=== PATIENT | male | born 2000 | race Caucasian/White ===

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

== ENCOUNTER 2024-04-19 09:06 | Inpatient (IN) ==
--- NOTE | 2024-04-19 09:24 | Emergency Department Note ---
Impression & Plan Anxiety, Crohn disease, Hallucinations ED Provider Note Provider: Toi Pearl MD CHIEF COMPLAINT: Anxious, not functioning, hallucinations HISTORY OF PRESENT ILLNESS: Patient is a 23-year-old gentleman history of Crohn's disease on Remicade presenting here today with mother reporting significant anxiety issues with past 3 weeks. Initially to panic attack and seen at [facility]. Discharge. Follow-up with primary doctor not on any meds. Has been unable to get into outpatient therapy or counseling. No SI or HI reported. The last several days patient's functionality has declined. Patient states he is not sleeping. Mother provides additional history as the patient's slow to respond at times and has difficulty remembering some parts. Patient did have a recent Crohn's flare several weeks ago but finish steroids 2 to 3 weeks ago. No fevers. No falls. No drug or alcohol use reported. Patient had difficulty remembering if he brushes teeth this morning are functioning well and evidently reported to mother he was hearing sirens. Also stated this morning he thought someone was going to try to kill him. No significant psychiatric or inpatient history reported. Did not eat or drink anything today and states he is not hungry. Started job over the summer and the first big project occurring according to mother and he is under significant stress. PAST MEDICAL HISTORY: As noted above MEDICATIONS: Reviewed home medications SOCIAL HISTORY: Lives at home with mother, no recreational drug use reported PHYSICAL EXAM: GENERAL: alert and oriented in no acute distress on stretcher Head: normocephalic and atraumatic EYES: No injection, discharge or icterus. EOMI. NECK: Trachea midline. Supple. Good range of motion. ENT: Mucous membranes pink and moist. LUNGS: Airway patent. No retractions. Breath sounds clear HEART: Regular rate and rhythm. No chest wall tenderness ABDOMEN: Soft and non-tender, without guarding or rebound. SKIN: Acyanotic, warm, dry, without rashes EXTREMITIES: Without swelling, tenderness or deformity NEUROLOGICAL: No focal deficits. No aphasia. No facial droop or slurred speech. Normal strength and tone in the extremities. Sensation to gross touch normal. Ambulatory. Psych: Flattened affect. Some long pauses and slow to respond at times but no slurred speech. No aphasia. Ambulatory. Patient's laboratory studies reviewed. Differential includes Mood disorder, infection, hypoglycemia, electrolyte abnormalities, cardiac sources, intracerebral event, toxicologic, trauma, neurologic, as well as other pathologies. IMPRESSION/MEDICAL DECISION MAKING: Patient denies drug or alcohol usage. No significant psychiatric history beyond the recent several weeks with some anxiety. No visual loose Nations reported but reports at times auditory hallucinations. Very flattened affect on exam here. Seems to have declining functional status but no SI or HI. Has been unable to establish outpatient psychiatric care to date over the last several weeks. Basic blood work obtained here. Benign abdomen. Denies fever and afebrile and no believe this is infectious related. Question if he is having a stress reaction or possible psychiatric break related to job stress. Will occasionally slow to respond does not seem truly catatonic. Basic blood work here without significant abnormality noted. Seen by case management and will make referrals for inpatient treatment on a voluntary basis. Evaluated by 3 S. for inpatient psychiatric care here and accepted upstairs by the psychiatrist for further care. DIAGNOSIS: Anxiety, hallucinations DISPOSITION: Accepted to [facility] on voluntary mental health evaluation on a 201. Past Med/Surg History Problem List (Updated 04/19/24 @ 14:47 by Toi Pearl M.D.) Hallucinations (Acute) Anxiety (Acute) Crohn disease (Chronic) Medical History (Updated 04/19/24 @ 14:47 by Toi Pearl M.D.) Metacarpal bone fracture Surgical History (Updated 01/14/22 @ 09:36 by Danya Mcgowan LPN) H/O colonoscopy multiple-has Crohn's Family History Grandfather Ischemic stroke Unknown Heart disease Grandmother Heart disease Mother Ulcerative colitis Sister Vesicoureteral reflux, bilateral Social History (Updated 01/14/22 @ 09:37 by Danya Mcgowan LPN) Smoking Status: Never smoker Second Hand Exposure: No; Do You Dip or Chew Tobacco: No; Hx Alcohol Use: No Hx Substance Use: No Preferred Language: Sammarinese Communication Ability: Effective Visual Impairment: No Limitations Hearing Ability: Normal Dust Puller Required: No marital status: Single Current Living Situation: Family Current Living Situation Comment: dad,mom,two younger sisters and one dog. [employer] student. Feels Safe at Home: Yes Childhood Exposure to Second-Hand Smoke: No Dental Care, Regularly: Yes Gender Identity: Male Allergies Allergies Allergy/AdvReac Type Severity Reaction Status Date / Time cat dander Allergy Mild eyes get Verified 01/14/22 09:34 red, and sneezes stellara Allergy Severe Uncoded 01/14/22 09:34 Home Meds Home Medications Medication Instructions Recorded Confirmed multivitamin 1 tab PO DAILY 12/24/20 04/19/24 infliximab 100 mg intravenous 100 mg IV .Q 6 wks 01/14/22 04/19/24 solution (Remicade) Results & Data (ED) Vital Signs Vital Signs - 24 hr 04/19/24 09:10 04/19/24 11:16 04/19/24 13:06 Temperature 36.7 C Temperature Source Temporal Artery Scan Pulse Rate 124 H Pulse Rate [Finger] 93 H 105 H Pulse Rhythm [Finger] Regular Regular Pulse Strength [Finger] Normal Normal Respiratory Rate 14 14 16 Respiratory Effort / Characteristics Non-Labored Spontaneous Non-Labored Spontaneous Respiratory Depth Normal Normal Respiratory Pattern Regular Regular Blood Pressure 146/93 H Blood Pressure [Right Arm] 135/79 142/93 H Blood Pressure Mean 110 Blood Pressure Mean [Right Arm] 97 109 Blood Pressure Position [Right Arm] Lying Lying Pulse Oximetry 97 99 98 Oxygen Delivery Method Room Air Room Air Room Air Sepsis New/Unexplained Change in Mental Status No Sepsis Action Taken by Nursing No Action Required Laboratory Data 04/19/24 09:25 04/19/24 09:25 Lab Results 04/19/24 04/19/24 Range/Units 09:25 09:27 WBC 10.31 (4.8-10.8) K/ul RBC 5.53 (4.70-6.10) M/uL Hgb 15.7 (14.0-18.0) g/dl Hct 46.1 (42.0-52.0) % MCV 83.4 (80.0-100.0) fL MCH 28.4 (25.0-34.0) pg MCHC 34.1 (32.0-36.0) g/dL RDW Std Deviation 38.6 (36.4-46.3) fL RDW Coeff of Juhi 12.6 (11.5-14.5) % Plt Count 284 (130-400) K/uL MPV 9.4 (9.4-12.4) fL Immature Gran % (Auto) 0.2 % Neut % (Auto) 73.8 % Lymph % (Auto) 20.1 % [place] % (Auto) 5.4 % Eos % (Auto) 0.1 % Baso % (Auto) 0.4 % Neut # (Auto) 7.61 H (1.40-6.50) K/uL Lymph # (Auto) 2.07 (1.20-3.40) K/uL [place] # (Auto) 0.56 (0.11-0.59) K/uL Eos # (Auto) 0.01 (0.00-0.50) K/uL Baso # (Auto) 0.04 (0.00-0.20) K/uL Immature Gran # (Auto) 0.02 (0.01-0.20) K/uL Sodium 138 (136-145) mmol/L Potassium 3.7 (3.5-5.1) mmol/L Chloride 103 (98-107) mmol/L Carbon Dioxide 27 (21-32) mmol/L Anion Gap 8 (3-11) BUN 9 (6-23) mg/dl Creatinine 0.91 (0.6-1.4) mg/dl Est Cr Clr Drug Dosing 120.8 ml/min eGFR 122.21 BUN/Creatinine Ratio 9.9 L (10-20) Glucose 111 H (70-99(Fasting)) mg/dl Calcium 9.9 (8.6-10.3) mg/dl Total Bilirubin 0.7 (0.2-1.0) mg/dl AST 17 (13-39) U/L ALT 14 (7-52) U/L Alkaline Phosphatase 51 (34-104) U/L Total Protein 8.0 (6.0-8.3) gm/dl Albumin 5.0 (3.4-5.0) gm/dl Globulin 3.0 (2.5-4.0) gm/dl Albumin/Globulin Ratio 1.7 (0.9-2) TSH 2.619 (0.300-4.500) uIu/ml Salicylates < 3.0 L (3.0-30) mg/dl Acetaminophen < 3 L (10-30) ug/ml Ethyl Alcohol mg/dL < 10.0 (<10.0) mg/dl SARS-CoV-2, RNA, NAAT NEGATIVE (NEGATIVE) Administered Medications Discontinued Medications Lorazepam (Lorazepam 1 Mg Tab) 1 mg PO NOW STA Stop: 04/19/24 14:10 Last Admin: 04/19/24 14:27 Dose: 1 mg Documented By: TLF Discharge Plan Visit Data Chief Complaint: Mental Health Evaluation Stated Complaint: MENTAL HEALTH CRISIS ED Provider: Toi Pearl Discharge Problem: Anxiety, Crohn disease, Hallucinations Patient Disposition: Admitted As Inpatient Discharge Instructions Interventions: ED Discharge Assessment Last Done: 04/19/24 13:33
[2024-04-19 09:52] LABS: Basophils # (auto) 0.04 K/uL (0.00-0.20); Basophils % (auto) 0.4 %; Eosinophils # (auto) 0.01 K/uL (0.00-0.50); Eosinophils % (auto) 0.1 %; Hematocrit (blood only) 46.1 % (42.0-52.0); Hemoglobin 15.7 g/dl (14.0-18.0); Immature Granulocytes # (auto) 0.02 K/uL (0.01-0.20); Immature Granulocytes % (auto) 0.2 %; Lymphocytes # (auto) 2.07 K/uL (1.20-3.40); Lymphocytes % (auto) 20.1 %; Mean Corpuscular Hemoglobin 28.4 pg (25.0-34.0); Mean Corpuscular Hgb Conc 34.1 g/dL (32.0-36.0); Mean Corpuscular Volume 83.4 fL (80.0-100.0); Mean Platelet Volume 9.4 fL (9.4-12.4); Monocytes # (auto) 0.56 K/uL (0.11-0.59); Monocytes % (auto) 5.4 %; Neutrophils # (auto) 7.61 K/uL (1.40-6.50); Neutrophils % (auto) 73.8 %; Platelet Count 284 K/uL (130-400); RDW Coefficient of Variation 12.6 % (11.5-14.5); RDW Standard Deviation 38.6 fL (36.4-46.3); Red Blood Count 5.53 M/uL (4.70-6.10); White Blood Count 10.31 K/ul (4.8-10.8)
[2024-04-19 10:08] LABS: Acetaminophen < 3 ug/ml (10-30); Salicylate < 3.0 mg/dl (3.0-30)
[2024-04-19 10:15] LABS: Albumin Globulin Ratio 1.7 (0.9-2); BUN Creatinine Ratio 9.9 (10-20); Bilirubin,Total 0.7 mg/dl (0.2-1.0); Calcium 9.9 mg/dl (8.6-10.3); Creatinine Clr Calc Pharmacy 120.8 ml/min; Potassium 3.7 mmol/L (3.5-5.1)
[2024-04-19 10:29] LABS: Thyroid Stimulating Hormone 2.619 uIu/ml (0.300-4.500)
[2024-04-19 11:02] LABS: Appearance Urine Clear (Clear); Bilirubin Urine Negative (Negative); Blood Urine Negative (Negative); Color Urine Yellow; Glucose Urine UA Negative (Negative); Ketones Urine Trace (Negative); Leukocyte Esterase Urine Negative (Negative); Nitrite Urine Negative (Negative); Protein Urine Negative (Negative); Urobilinogen Urine Negative (Negative)
[2024-04-19 11:37] LABS: Amphetamines+Metham, Urine Neg (Neg); Barbiturates, Urine Neg (Neg); Benzodiazepine, Urine Neg (Neg); Cocaine, Urine Neg (Neg); Fentanyl, Urine Neg (Neg); MDMA (Ecstacy), Urine Neg (Neg); Marijuana, Urine Neg (Neg); Methadone, Urine Neg (Neg); Opiate, Urine Neg (Neg); Phencyclidine, Urine Neg (Neg)
[2024-04-19] MEDS ORDERED: ALUMINUM/MAGNESIUM SUSP 30 ML UDC PO PRN (13:25)
[2024-04-19] MEDS ORDERED: hydrOXYzine HCl 25 MG TAB PO PRN (13:25)
[2024-04-19] MEDS ORDERED: SODIUM CHLORIDE 0.65% NA SOLN 45 ML (OCEAN) PRN (13:25)
[2024-04-19] MEDS ORDERED: BISMUTH SUBSALICYLATE 262 MG CHEW PO PRN (13:25)
[2024-04-19] MEDS ORDERED: MAGNESIUM HYDROXIDE SUSP 30 ML UDC PO PRN (13:25)
[2024-04-19] MEDS: LORazepam 1 MG TAB PO STA (14:27)
[2024-04-19] MEDS: LORazepam 1 MG TAB PO SCH (21:21)
[2024-04-19] MEDS: OLANZapine 5 MG TABLET PO SCH (21:21)
--- NOTE | 2024-04-20 08:42 | History & Physical ---
Date of Service April 20, 2024 Impression / Recommendations Impression KIMANI BAUTISTA is a 23-year-old man who currently lives in [place] with his parents, has a history of anxiety and Crohn's disease, and was admitted on 04/19/24 13:26 on a 201 voluntary commitment for psychosis with impaired functioning including not eating and poor attention to self care. Diagnostically consistent with unspecified psychosis with differential including panic disorder/MICHAEL vs brief psychotic disorder vs MDD with psychotic features vs 2/2 steroid induced from recent prednisone use. Report of recent poor sleep but no other symptoms to suggest annette or bipolar disorder at this time. Discussed medication treatment options in detail. Discussed risks, benefits and alternatives. Patient would like to start and consented to sertraline for anxiety and possible depression component as well as olanzapine for unspecified psychosis and lorazepam prn for panic symptoms. Reviewed side effects including but not limited to: GI, RUIZ, sexual side effects, and counseled on black box warning of potential for emergence of or increased SI and need to let staff know should this occur or should they feel unsafe. Also discussed importance of seeking emergency care following discharge if this side effect occurs in the future with sertraline; potential for addiction/respiratory suppression, need to avoid operating machinery or mixing with alcohol with lorazepam; movement (TD, NMS), cardiac (QTc prolongation), and metabolic (stroke, insulin resistance) and necessity for fasting lipid and glucose labwork and AIMS done with score of 0 with olanzapine. MNPR-psychosis with paranoia and sense that others are talking about him or thinking about him negatively Overall I spent a total of 75 minutes for this admission including review of chart records, review of labwork, direct evaluation of the patient, counseling the patient, ordering medication, risk assessment, discussion with the psychiatric liason RN and documentation in the electronic health record. (1) Psychotic disorder: (2) Hallucinations: (3) Anxiety: (4) Crohn disease: (5) Insomnia: Plan 04/20/2024: The patient was admitted to the [facility] ([facility]) on q15 min checks (behavioral with suicide precautions) for safety. The patient will participate in group, recreational, and milieu therapies and will be offered additional individual and family sessions as clinically appropriate. -Start sertraline 25mg daily -Start olanzapine 5mg HS po and additional 2.5mg BID prn for paranoia/psychosis -Lorazepam 0.5mg BID prn for panic attacks/agitation -Labwork: * Fasting lipid panel * HbA1c * Vit D * Vit B12 Inventory Assets Strengths: supportive relationships, willing to get treatment Needs: safety and stabilization, medication adjustment, additional coping skills, increased outpatient services Suicide Risk Level Suicide Risk Level: Moderate (q15 min suicide checks) (denies SI but with increased paranoia and anxiety, feels safe in the hospital and feels able to alert staff if he feels unsafe or needs additional support) Risk Factors Assessment Male: Yes : Yes Do You Have Access To A Gun?: Yes (father has in the home) Health Problems: Yes Mental Health Diagnoses: Yes Substance Use Disorders: No Previous Attempt: No Family History of Suicide: No Previous Psychiatric Hospitalization: No Hopelessness: No Protective Factors Assessment Employed: Yes Stable Relationships: Yes Supportive Family: Yes Psychiatric History Identifying Data KIMANI BAUTISTA is a 23-year-old man who currently lives in [place] with his parents, has a history of anxiety and Crohn's disease, and was admitted on 04/19/24 13:26 on a 201 voluntary commitment for psychosis. Chief Complaint "Everything felt really fuzzy and I was hearing all the sirens". History of Present Illness Sebastian presents for psychiatric admission for worsening anxiety, panic symptoms and psychosis in the context of a recent Crohn's disease flare requiring high-dose prednisone treatment, work-related stress, and feelings of being overwhelmed by responsibilities. On March 22, he experienced a panic attack at work, leading to an ER visit where he was diagnosed with panic anxiety disorder. He reports improvement in his Crohn's symptoms after taking prednisone, but has developed feelings of paranoia and uneasiness. Describes hearing sirens and wondered if people at work might have been talking about him. He fears being targeted or that his work performance might be negatively impacted. He describes feeling like he wasn't "pulling his weight" at work and experiencing confusion about work-related tasks. He is not currently in therapy but is actively seeking a therapist through his insurance. 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 He endorses anxiety symptoms including excessive worry, paranoid thoughts, and panic attacks. He has been experiencing poor sleep for the past 2-3 days, with increased heart rate during the night. However, he reports improved sleep after starting Zyprexa last night. He was not prescribed any psychiatric medications prior to admission. Psychiatric ROS notable for no current nor history of symptoms of annette,PTSD, OCD nor eating disorder. Additional collateral information per ED CM note on 04/19/2024: "Pt is significantly delayed in responding to any questions. CM asked pt if he was hearing anything while he was pausing to answer, pt denies hearing anything following CM's voice. His eyes are looking around the room while he is silent. He also does not seem to know the answers to several questions asked or will answer incorrectly, prompting his mother to provide the correct response. Pt is unsure what he did this morning as far as getting himself ready for the day. He does not know if he brushed his teeth. Pt answered that his Crohn's disease has been fine, but mom corrects him stating that he has been having some issues with it. Pt states that he is not hearing any voices but does hear an ambulance siren that is not there. Pt's mother reports that today pt stated that someone is trying to kill him. Pt has no history of these symptoms. He was at [facility] recently following a panic attack and was discharged home to follow up outpatient. Pt has gotten significantly worse since then. Pt's mother reports he has not been eating, drinking, or sleeping well. He cannot remember things, make even basic decisions, and is unsure what he is doing most times. Pt denies SI/HI. He is unsure if he is having visual hallucinations. Denies drug use, but does consume alcohol occasionally." Past Psychiatric History Current Psychiatric Diagnosis: Unspecified Psychosis Outpatient Services: none currently Previous Psych Admissions: none Do You Have Access To A Gun?: Yes (father has in the home) History of Previous Suicide Attempt: No Past Medication Trials: none Allergies Allergy/AdvReac Type Severity Reaction Status Date / Time cat dander Allergy Mild eyes get Verified 01/14/22 09:34 red, and sneezes stellara Allergy Severe Uncoded 01/14/22 09:34 Home Medications Medication Instructions Recorded Confirmed Type multivitamin 1 tab PO DAILY 12/24/20 04/19/24 History infliximab 100 mg intravenous 100 mg IV .Q 6 wks 01/14/22 04/19/24 History solution (Remicade) Family History Family History of: None Alcohol History Hx of Alcohol Use Over the Past 12 Months: Yes (Occasional) AUDIT Total Score: 0 Reports occasional use, typically 1 drink a few times per week but limits this due to impact on autoimmune disease Smoking Use Have You Smoked or Used Tobacco Products in the Last 30 Days: No Smoking Status: Never smoker Substance History Hx of Prescription Med Misuse Over the Past 12 Months: No Hx of Over the Counter Med Misuse Over the Past 12 Months: No Hx of Inhalent Misuse Over the Past 12 Months: No Hx of Organic Substance Use Over the Past 12 Months: No Hx of Illegal Substances/Street Drug Use Over Past 12 Months: No Problems as a Result of Past Substance Use: None Identified Personal History Living Arrangements: Home Highest Grade Completed: College Employment Status: Hvac Installation Technician Employed Marital Status: Single Beliefs That Will Affect Care: None Current Legal Problems: No Hx Legal Problems: No Patient History Medical History Metacarpal bone fracture Surgical History H/O colonoscopy multiple-has Crohn's Family History Grandfather Ischemic stroke Unknown Heart disease Grandmother Heart disease Mother Ulcerative colitis Sister Vesicoureteral reflux, bilateral Social History Smoking Status: Never smoker Second Hand Exposure: No; Do You Dip or Chew Tobacco: No; Hx Alcohol Use: No Hx Substance Use: No Preferred Language: Nauruan Communication Ability: Effective Visual Impairment: No Limitations Hearing Ability: Normal Varnishing Unit Tool Setter Required: No Beliefs That Will Affect Care: None marital status: Single Current Living Situation: Family Current Living Situation Comment: dad,mom,two younger sisters and one dog. [employer] student. Feels Safe at Home: Yes Childhood Exposure to Second-Hand Smoke: No Dental Care, Regularly: Yes Gender Identity: Male Assistive Devices: Glasses Review of Systems Review of Systems: All systems reviewed & are unremarkable except as noted in HPI & below Physical Exam Psychiatric: Orientation: alert and oriented x 3 Apperance: appropriately dressed and appropriately groomed Eye Contact: + fair eye contact Motor Behavior: no abnormal motor movements Speech: + abnormal rate/rhythm/volume of speech (soft, mumbled at times) Affect: + depressed affect and + flat affect Mood: + depressed mood and + anxious mood Thought Process: goal directed thought process Thought Content: + preoccupation, + paranoid and + persecution Suicidal Thoughts: denies suicidal thoughts, denies suicidal plan and denies suicidal intent Homicidal Thoughts: denies homicidal thoughts Hallucinations: + auditory hallucinations; no visual hallucinations Cognition: recent memory grossly intact, remote memory grossly intact, attention grossly intact and language grossly intact Estimated Intelligence: consistent with education level Insight: + limited insight Judgment: + limited judgement Vital Signs (Past 24 Hours): Last Vital Signs Temp 37.0 C 04/20/24 06:38 Pulse 127 H 04/20/24 06:39 Resp 16 04/20/24 06:38 BP 127/83 04/20/24 06:39 Pulse Ox 97 04/20/24 06:38 O2 Del Method Room Air 04/20/24 06:38 Exam Statement: A physical exam was performed in the ED by Dr. Pearl for the purposes of medical clearance. I accept that physical as correct and adequate for the purposes of the inpatient physical exam. Results & Data ([facility]) Laboratory Results Laboratory Results - last 24 hr 04/19/24 04/19/24 04/19/24 09:25 09:27 Unknown WBC 10.31 RBC 5.53 Hgb 15.7 Hct 46.1 MCV 83.4 MCH 28.4 MCHC 34.1 RDW Std Deviation 38.6 RDW Coeff of Juhi 12.6 Plt Count 284 MPV 9.4 Immature Gran % (Auto) 0.2 Neut % (Auto) 73.8 Lymph % (Auto) 20.1 [place] % (Auto) 5.4 Eos % (Auto) 0.1 Baso % (Auto) 0.4 Neut # (Auto) 7.61 H Lymph # (Auto) 2.07 [place] # (Auto) 0.56 Eos # (Auto) 0.01 Baso # (Auto) 0.04 Immature Gran # (Auto) 0.02 Sodium 138 Potassium 3.7 Chloride 103 Carbon Dioxide 27 Anion Gap 8 BUN 9 Creatinine 0.91 Est Cr Clr Drug Dosing 120.8 eGFR 122.21 BUN/Creatinine Ratio 9.9 L Glucose 111 H Calcium 9.9 Total Bilirubin 0.7 AST 17 ALT 14 Alkaline Phosphatase 51 Total Protein 8.0 Albumin 5.0 Globulin 3.0 Albumin/Globulin Ratio 1.7 TSH 2.619 Urine Color Yellow Urine Appearance Clear Urine pH 7.0 Ur Specific [place] 1.010 Urine Protein Negative Urine Glucose (UA) Negative Urine Ketones Trace H Urine Blood Negative Urine Nitrite Negative Urine Bilirubin Negative Urine Urobilinogen Negative Ur Leukocyte Esterase Negative Salicylates < 3.0 L Urine Opiates Screen Neg Ur Methadone, Qual Neg Urine Fentanyl Screen Neg Acetaminophen < 3 L Urine Barbiturates Neg Ur Phencyclidine (PCP) Neg U Amphetamin/Meth Scrn Neg MDMA (Ecstasy) Screen Neg U Benzodiazepines Scrn Neg Ur Cocaine Metabolite Neg U Marijuana (THC) Screen Neg Ethyl Alcohol mg/dL < 10.0 SARS-CoV-2, RNA, NAAT NEGATIVE Current Inpatient Medications Current Inpatient Medications: Current Inpatient Medications Acetaminophen (Acetaminophen 325 Mg Tab) 650 mg PO Q4H PRN PRN Reason: Headache or Minor Fever Stop: 05/19/24 13:24 Al Hydrox/Mg Hydrox/Simethicone (Aluminum/Magnesium Susp 30 Ml Udc) 30 ml PO Q4H PRN PRN Reason: GI Upset Stop: 05/19/24 13:24 Bismuth Subsalicylate (Bismuth Subsalicylate 262 Mg Chew) 2 tab PO Q30M PRN PRN Reason: Loose Stool/Diarrhea Stop: 05/19/24 13:24 Hydroxyzine HCl (Hydroxyzine Hcl 25 Mg Tab) 50 mg PO HSZ PRN PRN Reason: Insomnia Stop: 05/19/24 13:24 Hydroxyzine HCl (Hydroxyzine Hcl 25 Mg Tab) 25 mg PO Q4H PRN PRN Reason: Anxiety Stop: 05/19/24 13:24 Lorazepam (Lorazepam 1 Mg Tab) 1 mg PO HS CROW Stop: 05/19/24 21:59 Last Admin: 04/19/24 21:21 Dose: 1 mg Magnesium Hydroxide (Magnesium Hydroxide Susp 30 Ml Udc) 30 ml PO DAILY PRN PRN Reason: Constipation Stop: 05/19/24 13:24 Olanzapine (Olanzapine 5 Mg Tablet) 5 mg PO HS CROW Stop: 05/19/24 21:59 Last Admin: 04/19/24 21:21 Dose: 5 mg Sodium Chloride (Sodium Chloride 0.65% Na Soln 45 Ml ([place])) 1 - 2 sprays NA PRN PRN PRN Reason: Nasal Dryness/Congestion Stop: 05/19/24 13:24
[2024-04-20] MEDS ORDERED: OLANZAPINE 2.5 MG TAB PO PRN (10:23)
[2024-04-20] MEDS: SERTRALINE HCL 50 MG TABLET PO SCH (11:14)
[2024-04-20] MEDS: MULTIVITAMIN TAB PO SCH (11:14)
[2024-04-21] MEDS: ACETAMINOPHEN 325 MG TAB PO PRN (07:13)
[2024-04-21 08:16] LABS: Estimated Average Glucose 105 mg/dl; Hemoglobin A1C 5.3 % (4.5-5.6)
--- NOTE | 2024-04-21 08:59 | Psychiatric Progress Note ---
Date of Service April 21, 2024 Impression / Recommendations Impression KIMANI BAUTISTA is a 23-year-old man who currently lives in [place] with his parents, has a history of anxiety and Crohn's disease, and was admitted on 04/19/24 13:26 on a 201 voluntary commitment for psychosis with impaired functioning including not eating and poor attention to self care. Diagnostically consistent with unspecified psychosis with differential including panic disorder/MICHAEL vs brief psychotic disorder (family history of schizophrenia) vs MDD with psychotic features vs 2/2 steroid induced from recent prednisone use. Report of recent poor sleep but no other symptoms to suggest annette or b ipolar disorder at this time. A: Ongoing acute psychosis with thought blocking, ideas of reference, paranoia, delusions, persecution and significant self-guilt. At this point MDD with psychotic features and anxious distress vs primary psychotic disorder seem most likely. Limited response to olanzapine so far and some dizziness this morning and possible orthostasis, will switch to risperidone. He consents to this, reviewed side effects-re: cardiac, metabolic and movement. Labwork reviewed and normal and reassuring for ongoing use of antipsychotic. Tolerating sertraline so far. MNPR-psychosis with paranoia and sense that others are talking about him or thinking about him negatively Overall, I spent a total of 65 minutes on this case including meeting with the patient, reviewing the chart, nursing report, multidisciplinary team meeting, orders, and documentation and meeting with his parents for collateral (45 minutes). (1) Psychotic disorder: (2) Hallucinations: (3) Anxiety: (4) Crohn disease: (5) Insomnia: Plan 04/21/2024: -Discontinue olanzapine -Start risperidone 1mg BID and 0.5mg BID prn for paranoia/psychosis 04/20/2024: [facility]) on q15 min checks (behavioral with suicide precautions) for safety. The patient will participate in group, recreational, and milieu therapies and will be offered additional individual and family sessions as clinically appropriate. -Start sertraline 25mg daily -Start olanzapine 5mg HS po and additional 2.5mg BID prn for paranoia/psychosis -Lorazepam 0.5mg BID prn for panic attacks/agitation -Labwork: * Fasting lipid panel * HbA1c * Vit D * Vit B12 Inventory Assets Strengths: supportive relationships, willing to get treatment Needs: safety and stabilization, medication adjustment, additional coping skills, increased outpatient services Suicide Risk Level Suicide Risk Level: Moderate (q15 min suicide checks) (denies SI but with increased paranoia and anxiety, feels safe in the hospital and feels able to alert staff if he feels unsafe or needs additional support) Risk Factors Assessment Male: Yes : Yes Do You Have Access To A Gun?: Yes (father has in the home) Health Problems: Yes Mental Health Diagnoses: Yes Substance Use Disorders: No Previous Attempt: No Family History of Suicide: No Previous Psychiatric Hospitalization: No Hopelessness: No Protective Factors Assessment Employed: Yes Stable Relationships: Yes Supportive Family: Yes Interval History Identifying Information KIMANI BAUTISTA is a 23-year-old man who currently lives in [place] with his parents, has a history of anxiety and Crohn's disease, and was admitted on 04/19/24 13:26 on a 201 voluntary commitment for psychosis. Chief Complaint "Feel like I'm doing bad things here". Review of Systems Sleep Information Total Hours of Sleep: 5.75 Meal Information Percent Meal Consumed - Breakfast: 100 Percent Meal Consumed - Dinner: 100 Subjective Subjective Patient was seen & assessed and interval progress reviewed with treatment team nursing and social work. Last evening reported his mood as a "2". Needs help filling out his menu, asks permission to use the bathroom. Disorganized at times. Stayed up to watch [employer] game with peers but then slept overnight. This morning when lab came to draw his blood he reported some dizziness and lowered BP and HR but it improved after manual check. Today wants to verify my badge and credentials before speaking with me. References concerns that cameras are monitoring and listening to us. Significant latency and pauses during our conversation, appears to be actively responding to internal stimuli. References ideas of reference related to belief that a commercial on TV last night was speaking to him and blaming him for the reason [employer] lost the football game. Hearing peers speaking when he's in his room. Worries he's doing bad things. Asks permission to use the bathroom. Very anxious he's doing the wrong thing. Met with his parents with his permission. They report history of him being very contentious and literal but has close friends and seemed to always manage anxiety fairly well until early March. He misinterpreted a joke at work and was very upset after someone at work mistakenly paid an account twice (and he thought initially he was at fault for this). Had improved after panic attack early in the month but then worsened abruptly again last week with stressful work deadline. Family history of schizophrenia on maternal side of the family (great uncle and likely great aunt). Physical Exam Psychiatric Orientation: alert and oriented x 3 Apperance: appropriately dressed and appropriately groomed Eye Contact: + fair eye contact Motor Behavior: no abnormal motor movements Speech: + abnormal rate/rhythm/volume of speech (soft, blocking, mumbled at times) Affect: + anxious affect and + flat affect Mood: + anxious mood Thought Process: + thought blocking Thought Content: + paranoid, + delusions, + ideas of reference and + persecution Suicidal Thoughts: denies suicidal thoughts, denies suicidal plan and denies suicidal intent Homicidal Thoughts: denies homicidal thoughts Hallucinations: + auditory hallucinations and + visual hallucinations (possible, eyes darting around during conversation) Cognition: remote memory grossly intact, attention grossly intact and language grossly intact; + recent memory not intact Estimated Intelligence: consistent with education level Insight: + limited insight Judgment: + limited judgement Vital Signs (Past 24 Hours) Last Vital Signs Temp 36.2 C L 04/21/24 05:00 Pulse 77 04/21/24 05:00 Resp 18 04/21/24 05:00 BP 127/77 04/21/24 05:00 Pulse Ox 97 04/21/24 05:00 O2 Del Method Room Air 04/21/24 05:00 Results & Data ([facility]) Laboratory Results Laboratory Results - last 24 hr 04/21/24 06:57 Estimat Average Glucose 105 Hemoglobin A1c 5.3 Triglycerides 55 Cholesterol 123 LDL Cholesterol, Calc 71 VLDL Cholesterol, Calc 11 HDL Cholesterol 41 Cholesterol/HDL Ratio 3.0 Vitamin B12 433 25-OH Vitamin D Total 32.2 Current Inpatient Medications Current Inpatient Medications: Current Inpatient Medications Acetaminophen (Acetaminophen 325 Mg Tab) 650 mg PO Q4H PRN PRN Reason: Headache or Minor Fever Stop: 05/19/24 13:24 Last Admin: 04/21/24 07:13 Dose: 650 mg Al Hydrox/Mg Hydrox/Simethicone (Aluminum/Magnesium Susp 30 Ml Udc) 30 ml PO Q4H PRN PRN Reason: GI Upset Stop: 05/19/24 13:24 Bismuth Subsalicylate (Bismuth Subsalicylate 262 Mg Chew) 2 tab PO Q30M PRN PRN Reason: Loose Stool/Diarrhea Stop: 05/19/24 13:24 Hydroxyzine HCl (Hydroxyzine Hcl 25 Mg Tab) 50 mg PO HSZ PRN PRN Reason: Insomnia Stop: 05/19/24 13:24 Hydroxyzine HCl (Hydroxyzine Hcl 25 Mg Tab) 25 mg PO Q4H PRN PRN Reason: Anxiety Stop: 05/19/24 13:24 Lorazepam (Lorazepam 0.5 Mg Tab) 0.5 mg PO BID PRN PRN Reason: Panic attack Stop: 05/20/24 10:22 Magnesium Hydroxide (Magnesium Hydroxide Susp 30 Ml Udc) 30 ml PO DAILY PRN PRN Reason: Constipation Stop: 05/19/24 13:24 Multivitamins (Multivitamin Tab) 1 tab PO DAILY CROW Stop: 05/20/24 10:59 Last Admin: 04/20/24 11:14 Dose: 1 tab Olanzapine (Olanzapine 5 Mg Tablet) 5 mg PO HS CROW Stop: 05/19/24 21:59 Last Admin: 04/20/24 20:10 Dose: 5 mg Olanzapine (Olanzapine 2.5 Mg Tab) 2.5 mg PO BID PRN PRN Reason: psychosis/paranoia Stop: 05/20/24 20:59 Sertraline HCl (Sertraline Hcl 50 Mg Tablet) 25 mg PO QAM CROW Stop: 05/20/24 10:29 Last Admin: 04/20/24 11:14 Dose: 25 mg Sodium Chloride (Sodium Chloride 0.65% Na Soln 45 Ml (Sierra)) 1 - 2 sprays NA PRN PRN PRN Reason: Nasal Dryness/Congestion Stop: 05/19/24 13:24
--- OUTSIDE RECORDS SUMMARY | 2024-04-21 09:25 | External Medical Summary | Continuity of Care Document ---
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 Role Phone Rosaline Canas Primary Care Physician [phone] [id number] Date(s): 02/09/24 - 02/09/24 [facility] [address] [place] [facility] [phone] Encounter Diagnosis Crohn's disease of both small and large intestine without complications(Final) - Discharge Disposition: Home or Self Care Attending Physician: KIM Styles Kelli Jo Referring Physician: KIM Styles Kelli Jo Allergies, Adverse Reactions, Alerts Substance Criticality Severity Reaction Reaction Severity Status Cats hay feveer symptoms Active Stelara chest pain Active Immunizations Given and Recorded Vaccine Date Status Refusal Reason influenza virus vaccine, inactivated 01/30/24 Give n influenza virus vaccine, inactivated 02/14/22 Give n influenza virus vaccine, inactivated 02/11/02 Toño rded influenza virus vaccine, inactivated 01 Toño rded zoster vaccine, inactivated 06/13/23 Given SARS-CoV-2 (COVID-19) mRNA-vacc - [id number] 02/24/23 Recorded pneumococcal 23-valent vaccine 12/08/22 Given pneumococcal 23-valent vaccine 06/09/21 Recorded SARS-CoV-2 mRNA (Pfizer 12+) bivalent 02/20/22 Rec orded SARS-CoV-2 mRNA (tozinameran 5y-11y) 06/09/21 Toño rded SARS-CoV-2 mRNA (tozinameran 5y-11y) 12/31/20 Toño rded SARS-CoV-2 mRNA (tozinameran 5y-11y) 07/28/20 Toño rded SARS-CoV-2 mRNA (tozinameran 5y-11y) 07/07/20 Toño rded pneumococcal 13-valent vaccine 06/09/21 Recorded pneumococcal 13-valent vaccine 10/09/02 Recorded pneumococcal 13-valent vaccine 04/15/02 Recorded pneumococcal 13-valent vaccine 02/11/02 Recorded pneumococcal 13-valent vaccine 01 Recorded meningococcal group B vaccine 11/06/18 Recorded meningococcal group B vaccine 10/18/17 Recorded meningococcal conjugate vaccine 10/18/17 Recorded meningococcal conjugate vaccine 10/12/12 Recorded hepatitis B pediatric vaccine 10/29/15 Recorded hepatitis B pediatric vaccine 07/27/15 Recorded hepatitis B pediatric vaccine 06/29/15 Recorded hepatitis B pediatric vaccine 10/09/02 Recorded hepatitis B pediatric vaccine 02/11/02 Recorded hepatitis B pediatric vaccine 01 Recorded human papillomavirus vaccine 01/05/14 Recorded human papillomavirus vaccine 12/05/13 Recorded human papillomavirus vaccine 11/05/13 Recorded human papillomavirus vaccine 12/27/12 Recorded human papillomavirus vaccine 10/12/12 Recorded tetanus/diphtheria/pertuss, acel (Tdap) 10/12/12 R ecorded hepatitis A pediatric vaccine 10/21/11 Recorded hepatitis A pediatric vaccine 03/03/11 Recorded influenza virus vaccine, H1N1 04/04/09 Recorded poliovirus vaccine, inactivated 11/23/06 Recorded poliovirus vaccine, inactivated 01/06/03 Recorded poliovirus vaccine, inactivated 02/11/02 Recorded poliovirus vaccine, inactivated 01/14/02 Recorded poliovirus vaccine, inactivated 01 Recorded measles/mumps/rubella virus vaccine 11/23/06 Recor ded measles/mumps/rubella virus vaccine 10/09/02 Recor ded varicella virus vaccine 11/23/06 Recorded varicella virus vaccine 10/09/02 Recorded diphtheria/tetanus/pertuss, acel (DTaP) 11/23/06 R ecorded diphtheria/tetanus/pertuss, acel (DTaP) 04/21/03 R ecorded diphtheria/tetanus/pertuss, acel (DTaP) 04/15/02 R ecorded diphtheria/tetanus/pertuss, acel (DTaP) 02/11/02 R ecorded diphtheria/tetanus/pertuss, acel (DTaP) 01 R ecorded haemophilus b conjugate (HbOC) vaccine 10/09/02 Re corded haemophilus b Vaccine Unspecified 02/11/02 Recorde d haemophilus b Vaccine Unspecified 01 Recorde d Medications budesonide 9 mg oral tablet, extended release Start: 01/30/24 1:56:00 PM EDT, 1 tab, PO, qAM, Disp# 28 tab, Refills: 1, Note to Pharmacy: Please call our office if Rx is greater than $80. [phone], Pharmacy: [id number] Start Date: 01/30/24 Stop Date: 03/26/24 Status: Ordered D3 50 mcg (2000 intl units) oral capsule Start: 01/30/24 1:35:00 PM EDT Start Date: 01/30/24 Status: Ordered multivitamin Start: 05/21/20 10:21:00 AM EST, 1 tab, PO, Daily Start Date: 05/21/20 Status: Ordered Paxlovid 300 mg-100 mg Dose Pack oral tablet Start: 12/29/23 9:09:00 AM EDT, See Instructions, Disp# 30 tab, Refills: 0, Take 300 mg nirmatrelvir(two 150 mg tablets) with 100 mg ritonavir (one 100 mg tablet) twice daily for 5 days., Note to Pharmacy: Must fill by:, Pharmacy: [id number] Start Date: 12/29/23 Status: Ordered Remicade 100 mg intravenous injection Start: 07/29/21 10:21:00 AM EDT, See Instructions, Inflectra 10mg/kg every 6 weeks. Start Date: 07/29/21 Status: Ordered Problem List Condition Confirmation Course Effective Dates Status [facility] Informant Crohn's ileocolitis Confirmed Active Procedures Procedure Date Related Diagnosis Body Site Status Colonoscopy 1, 2, 3 03/20/23 Compl eted Colonoscopy 4 02/10/22 Completed Endoscopy 5 02/10/22 Completed Colonoscopy 6, 7 12/07/20 Complete d Colonoscopy 8 04/08/20 Completed Colonoscopy 10/26/19 Completed Extraction of wisdom tooth Completed 1- The examined portion of the ileum was normal. - Mild inflammation in a portion of the cecum with loss of vascularity, edema and friability. - Surveillance biopsies taken throughout the colon with cold biopsy forceps. Estimated blood loss minimal. - Three 10 to 15 mm polyps in the descending colon, removed using lift and cut and a hot snare. Resected and retrieved. - One large polyp in the sigmoid colon, removed with a hot snare. Incomplete resection. Resected tissue retrieved. - One 5 mm polyp in the rectum, removed with a cold snare. Resected and retrieved. All of the polyps seemed to have an inflammatory compenent but removed as much as possible in case they represent dysplasia in the setting of chronic crohns colitis. - Redundant colon. - The examination was otherwise normal on direct and retroflexion views. 2Repeat colonoscopy in 2 years for crohns surveillance. 3A) Colon, cecum, biopsy Chronic colitis with focal activity B) Ascending colon, biopsy No significant pathology C) Colon, hepatic flexure, biopsy No significant pathology D) Transverse colon, biopsy No significant pathology E) Colon, splenic flexure, biopsy No significant pathology F) Descending colon, biopsy No significant pathology G) Sigmoid colon, biopsy No significant pathology H) Rectum, biopsy No significant pathology I) Descending colon polyp, polypectomy Benign inflammatory polyp J) Descending colon polyp, polypectomy Benign inflammatory polyp K) Descending colon polyp, polypectomy Benign inflammatory polyp L) Sigmoid colon polyp, partial polypectomy Benign inflammatory polyp M) Rectal polyp, polypectomy Benign inflammatory polyp COMMENT: No dysplasia or granulomas identified in any of the specimens 4Erythematous mucosa in the descending colon. Three 8 to 15 mm polyps in the descending colon. Unsuccessful polyp resection. Appearance consistent with inflammatory polyps. No specimens collected, Repeat in 1 year 5Impression: Esophagus, stomach and duodenum all negative. No specimens collected. 6COLO to TI, TI nl, redundant colon, mod inflamamtion with inflammatory polyps DC/SF region bx, regional bx also taken. 7A. Colon, cecum, biopsy: No significant change. B. Ascending colon, biopsy: No signifcant change. C. Colon, hepatic flexure, biopsy: No significant change. D. Transverse colon, biopsy: No significantchange. E. Colon, splenic flexure, biopsy: Multiple segments of colonic mucosa showing patchy active and chronic colitis. The inflammatory change in E. includes what appears to be a giant cell and poorly-formed granuloma. F. Descending colon, biopsy: Chronic colitis with focal activity. G. Sigmoid colon, b iopsy: chronic colitis with focal activity. H. Rectum, biopsy: multiple segments of glandular mucosa with patchy chronic proctitis. I Colon at 60cm, biopsy: intestinal mucosa with marked inflammation and focal granulation tissue compatible with inflammatory-type polyp. 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 The clinical history of Crohn's disease is noted. 8Preparation of the colon was fair. Aphtha in the distal ileum Crohn's disease with ileitis and colitis. Inflammation was found. This was severe, worsened compared to previous examination. No specimens collected. Social History Social History Type Response Smoking Status Never smoked cigaret jaret Sex Male Sex Representation Male (finding) Patient Care team information Care Team Personnel Name: MD Edmundo, Iván Davila Position: Physician - Family Med Member Role: Lifetime Relationship Address: [address] [facility] [address] [place] [address] [place] Name: BECKY Wright Janet Griffith Position: Nurse Pract - Pulmonary Med Member Role: Lifetime Relationship Address: [address] [place] [id number] Name: BECKY Canas Katrina M Position: Referring Member Role: Primary Care Provider Address: [address] [facility] [address] [place] [address] [place] Care Team Related Persons Name: KATIE BAUTISTA Name: KATIE BAUTISTA
--- OUTSIDE RECORDS SUMMARY | 2024-04-21 09:25 | External Medical Summary | Continuity of Care Document ---
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 Role Phone Rosaline Canas Primary Care Physician [phone] [id number] Date(s): 12/29/23 - 12/29/23 [facility] [address] [place] [address] Medical Group [address] [address] [place] [phone] Encounter Diagnosis COVID(Discharge Diagnosis) - 12/29/23 Discharge Disposition: Home or Self Care Attending Physician: MD Silva Christopher Allergies, Adverse Reactions, Alerts Substance Criticality Severity Reaction Reaction Severity Status Cats hay feveer symptoms Active Stelara chest pain Active Immunizations Given and Recorded Vaccine Date Status Refusal Reason zoster vaccine, inactivated 06/13/23 Given pneumococcal 23-valent vaccine 12/08/22 Given pneumococcal 23-valent vaccine 06/09/21 Recorded influenza virus vaccine, inactivated 02/14/22 Give n influenza virus vaccine, inactivated 02/11/02 Toño rded influenza virus vaccine, inactivated 01 Toño rded SARS-CoV-2 mRNA (tozinameran 5y-11y) 06/09/21 Toño rded SARS-CoV-2 mRNA (tozinameran 5y-11y) 12/31/20 Toño rded SARS-CoV-2 mRNA (tozinameran 5y-11y) 07/28/20 Toño rded SARS-CoV-2 mRNA (tozinameran 5y-11y) 07/07/20 Toño rded meningococcal group B vaccine 11/06/18 Recorded meningococcal group B vaccine 10/18/17 Recorded meningococcal conjugate vaccine 10/18/17 Recorded meningococcal conjugate vaccine 5/31/13 Recorded hepatitis B pediatric vaccine 10/29/15 Recorded hepatitis B pediatric vaccine 07/27/15 Recorded hepatitis B pediatric vaccine 06/29/15 Recorded hepatitis B pediatric vaccine 10/09/02 Recorded hepatitis B pediatric vaccine 02/11/02 Recorded hepatitis B pediatric vaccine 01 Recorded human papillomavirus vaccine 01/05/14 Recorded human papillomavirus vaccine 12/27/12 Recorded human papillomavirus vaccine 10/12/12 Recorded tetanus/diphtheria/pertuss, acel (Tdap) 10/12/12 R ecorded hepatitis A pediatric vaccine 10/21/11 Recorded hepatitis A pediatric vaccine 03/03/11 Recorded poliovirus vaccine, inactivated 11/23/06 Recorded poliovirus vaccine, inactivated 01/06/03 Recorded poliovirus vaccine, inactivated 01/14/02 Recorded poliovirus vaccine, inactivated 01 Recorded measles/mumps/rubella virus vaccine 11/23/06 Recor ded varicella virus vaccine 11/23/06 Recorded varicella virus vaccine 10/09/02 Recorded diphtheria/tetanus/pertuss, acel (DTaP) 11/23/06 R ecorded diphtheria/tetanus/pertuss, acel (DTaP) 04/21/03 R ecorded diphtheria/tetanus/pertuss, acel (DTaP) 04/15/02 R ecorded diphtheria/tetanus/pertuss, acel (DTaP) 02/11/02 R ecorded diphtheria/tetanus/pertuss, acel (DTaP) 01 R ecorded pneumococcal 13-valent vaccine 10/09/02 Recorded pneumococcal 13-valent vaccine 04/15/02 Recorded pneumococcal 13-valent vaccine 02/11/02 Recorded pneumococcal 13-valent vaccine 01 Recorded haemophilus b conjugate (HbOC) vaccine 10/09/02 Re corded Medications multivitamin Start: 05/21/20 10:21:00 AM EST, 1 tab, PO, Daily Start Date: 05/21/20 Status: Ordered Paxlovid 300 mg-100 mg Dose Pack oral tablet Start: 12/29/23 9:09:00 AM EDT, See Instructions, Disp# 30 tab, Refills: 0, Take 300 mg nirmatrelvir(two 150 mg tablets) with 100 mg ritonavir (one 100 mg tablet) twice daily for 5 days., Note to Pharmacy: Must fill by:, Pharmacy: [id number] Start Date: 12/29/23 Status: Ordered Remicade 100 mg intravenous injection Start: 07/29/21 10:21:00 AM EDT, See Instructions, Inflectra 10mg/kg every 6 weeks. Start Date: 07/29/21 Status: Ordered Mental Status 12/29/23 Barriers to Learning one year None evide nt Mandatory Health Literacy Documentation Yes Health Literacy Communication Barriers N ever Primary Language Czech Problem List Condition Confirmation Course Effective Dates Status [facility] Informant Crohn's ileocolitis Confirmed Active Diagnosis Diagnosis Type Effective Dates Health Status [facility] Informant COVID Discharge Diagnosis 12/29/23 Non-Specified Procedures Procedure Date Related Diagnosis Body Site [...] Med Member Role: Lifetime Relationship Address: [address] [facility] [address] [place] [address] [place] Name: BECKY Wright Janet Griffith Position: Nurse Pract - Pulmonary Med Member Role: Lifetime Relationship Address: [address] [place] [address] [place] Name: BECKY Canas Katrina M Position: Referring Member Role: Primary Care Provider Address: [address] [facility] [address] [place] [address] [place] Care Team Related Persons Name: KATIE BAUTISTA Name: KATIE BAUTISTA
--- OUTSIDE RECORDS SUMMARY | 2024-04-21 09:25 | External Medical Summary | Continuity of Care Document ---
Author Name Unknown Organization [address] [id number] Care Team Providers Care Multi Disciplined Language Analyst Name Role Phone Alfreda Canasrinele Nunez Primary Care Physician [phone] Encounter [facility] [id number] Date(s): 01/30/24 - 01/30/[address] [address] [phone] Encounter Diagnosis Crohn's ileocolitis(Discharge Diagnosis) - 01/30/24 Flu vaccine need(Discharge Diagnosis) - 01/30/24 Hematochezia(Discharge Diagnosis) - 01/30/24 Discharge Disposition: Home or Self Care Attending Physician: KIM Styles Kelli Jo Referring Physician: KIM Styles Kelli Jo Allergies, Adverse Reactions, Alerts Substance Criticality Severity Reaction Reaction Severity Status Cats hay feveer symptoms Active Stelara chest pain Active Assessment and Plan Extracted from: Title:Office Visit Note Author:KIM Styles Kell i Jo Date:01/30/24 1.Crohn's ileocolitis - Patient started Remicade 04/2021.Switch toInflectra 5mg/kg IV 09/2021 per insurance requirement.IncreasedInflectra from 5 mg/kg to 10 mg/kg every 6 weeks (low activity levels, active disease on colonoscopy, increased GI complaints). - Pt experiencing BRBPR 2/2 to delay in infusions. Treat flare and follow up. Treat with 8 weeks Budesonide currently, if coverage doesn't allow will order Prednisone taper. - Continue q6m labs with infusions. Will obtain infliximab levels off steroid in Mar/Apr and re-evaluate pts current status. -Obtain fecal calprotectin now and before Mar/Apr infusion. - If sxs not improving, will obtain CTE. -Recommendedannual eye exam IBD Health Maintenance: High risk colon cancerscreening: Due03/20/25 Drug toxicity monitoring/counseling: Ordered per above Drug monitoring: Ordered per above Age-appropriate cancer screening: Dermatology OV 08/2023, repeated annually Bone disease: vitamin D levell: previously low. Continue to monitor Vaccination: Annualinfluenza vaccine completed today. ObtainCOVID vaccination per CDC recommendation. Prevnar 13 vaccination 06/09/2021. Pneumovax administered 11/2022. Shingles vaccination 1 of 2 completed 05/2023 Live vaccine precautions: Patient should not receivelive vaccines while on immunosuppression. Depression: screen prn. Smoking cessation: n/a Medication compliance: no concerns 2.Burping - Not addressed today 2/2 IBD flare. Patient had EGD 01/2022 which demonstratedno concerningfindings in the esophagus, stomach, duodenum He has trialed famotidineand Tums without significant improvement in symptoms Patient self discontinued pantoprazole. -Reports resolution of symptoms. Surveillancecolonoscopy due March 20, 2025. GI follow up in 3months, sooner if needed. I have spent 42minutes in evaluation, education and documentation of this pt in both face to face and non-face to face activities. Immunizations Given and Recorded Vaccine Date Status Refusal Reason influenza virus vaccine, inactivated 01/30/24 Give n influenza virus vaccine, inactivated 02/14/22 Give n influenza virus vaccine, inactivated 02/11/02 Toño rded influenza virus vaccine, inactivated 01 Toño rded zoster vaccine, inactivated 06/13/23 Given SARS-CoV-2 (COVID-19) mRNA-vacc - [id number] 02/24/23 Recorded pneumococcal 23-valent vaccine 12/08/22 Given [...] office if Rx is greater than $80. [phone], Pharmacy: [id number] Start Date: 01/30/24 Stop Date: 03/26/24 [...] Note to Pharmacy: Must fill by:, Pharmacy: [facility] Start Date: 12/29/23 Status: Ordered Remicade 100 mg intravenous injection Start: 07/29/21 10:21:00 AM EDT, See Instructions, Inflectra 10mg/kg every 6 weeks. Start Date: 07/29/21 Status: Ordered Mental Status 01/30/24 Barriers to Learning one year None evide nt Mandatory Health Literacy Documentation Yes Health Literacy Communication Barriers N ever Primary Language Bulgarian Problem List Condition Confirmation Course Effective Dates Status Health St atus Informant Crohn's ileocolitis Confirmed Active Diagnosis Diagnosis Type Effective Dates Health Status Clinical Service Informant Hematochezia Discharge Diagnosis 01/30/24 Non-Specified Crohn's ileocolitis Discharge Diagnosis 01/30/24 Non-Specified Flu vaccine need Discharge Diagnosis 01/30/24 Non-Specified Procedures Procedure Date Related Diagnosis Body [...] compared to previous examination. No specimens collected. Vital Signs Most recent to oldest [Reference Range]: 1 Patient Weight 69.1 kg (01/30/24 1:36 PM) Heart Rate 71 bpm (01/30/24 1:36 PM) Respiratory Rate 17 br/min (01/30/24 1:36 PM) Blood Pressure 110/80mmHg (01/30/24 1:36 PM) Social History Social History Type Response Smoking Status Never smoked cigaret jaret Sex Male Sex Representation Male (finding) Gastroenterology Outpatient Note * KIM Styles, Doreen Schaefer: PERFORM Event Display: Gastroenterology Outpt Note Authored Date: [id number] Chief Complaint 6 month follow up. History of Present Illness The patient is a pleasant 33 presents today forfollow-up evaluation ofCrohn's ileocolitis.Pt previously managed by Sangeeth[facility] Wright DNP.[facility],and past medical historyreviewed. Prior records: 11/15/2019:GI office visit notes from Dr. Beltrán reviewed. Patient presented to establish care for history of Crohn'sdiseasediagnosedaround age 13 or 14. Patient onfrom 6-mercaptopurine 75 mg daily and Apriso 375mg - 4 pills per day.Doing well at the time of his office evaluation. 12/19/2019:Patient contacted the office with complaints of foul-smelling bloody diarrhea and abdominal pain. On 12/24/2019, prescription was sent to patient's pharmacy for prednisone 20 mg daily debbie follow-up appointmentwas made to evaluate symptoms. 04/08/2020: Colonoscopy notes reviewed performed by Dr. Beltrán demonstrateddistal ileum containing a few localized aphthaewithout stigmata of recent bleeding. There is inflammation characterized by erythema and friability found. The rectum, the transverse colon, the ascending colon, and cecum were spared. This was severeand when compared to previous examinations the findings are worsened. 12/07/2020:Colonoscopy notes are reviewed obtained due to history ofCrohn's disease which demonstratedthe examined portion of the terminal ileum was normal;there is evidence of Crohn's diseasewith colonic involvement. Inflammation was found from the descending colon to the splenic flexurewhich was moderate in severity and was biopsied. Segmental biopsies with cold biopsyforceps taken throughout the entire colon for surveillance with minimal postbiopsy bleeding; redundant colon;stool in the entire examined colon; otherwise normal. Pathology of the colon cecum, ascending colon, hepatic flexure, transverse colon demonstrated no significant change. Splenic flexure colon biopsy demonstrated multiple segments of colonic mucosa showing patchy active and chronic colitis; descending colon biopsy demonstrates chronic colitis with focal activity. 01/11/2021:Case reviewed with BECKY Prater from the IBD clinic at [facility]. She recommends thatwe restart Humira as she feels that patient response may have been subtherapeutic but that the medication could have been better optimized. Check Humira level and antibodies and increase to double strength dosing or weekly dosing as appropriate. Reassess response with colonoscopy when appropriate. 03/04/2021:IBD clinic notes are reviewedfor second opinion consultdue to history of Crohn's diseaseat this office request. Recommended checking Humira levels/antibody testing againand if levels were lowshortening intervaland if adequate discontinuing considering infliximab orEntyvio. Obtain labs includingbaseline fecal calprotectin, sed rate, CRPand plan to repeat in 3 to 4 months after modification oftherapy. Also recommendshealth maintenancevaccination. 03/11/2021: Laboratory testing obtained including ESR, CRP,fecal calprotectin, andHumira level/antibodiesreviewed. ESR CRP within normal limits. Fecal calprotectin elevated. Humira level7.9with no antibodies evidenced 05/11/2021: 1st Remicadeinfusion 12/13/2021tools: Fecal [id number] 01/13/2022: Infliximab antibody level 3.2 with no antibodies detected. 02/10/2022:EGDnotes reviewed performed due to history of indigestion which demonstrated normal esophagus, stomach, examined duodenum without specimens collected. 02/10/2022:Colonoscopynotes reviewed for follow-up of Crohn's disease which demonstrated a localized area of mildly erythematous mucosa in the descending colon. There were 3 pedunculated polyps in the descending colon which were 8- 15 mm in size. Polypectomy was attempted but unfortunately unable to be collected. Exam was otherwise normal. Would recommend repeat colonoscopy in 1 year for surveillance (01/2023). 02/14/2022 GI OV:The patient presents today for evaluation of IBS and Crohn's ileocolitis. Has been maintained on Remicade since 04/2021. Was switched to infliximab due to insurance requirements about 6 weeks ago. He is also noted some mildly increased nausea, abdominal discomfort, constipation. Weight is currently stable but did have8-1/2 pound weight loss at 11/2021 OV that he has not regained. He denies any fever, chills, night sweats, fatigue, rash, joint swelling. Denies hoarse voice, sore throat, cough. He has noted some dysphagia intermittently but denies knowingtriggers. He has taken omeprazole for heartburn in the past. Currently on no reflux medication. He has noted somedecrease in abdominal cramping. Continues to havebowel movements 1-2 times daily which are formed. Denies melena or hematochezia. He is wondering ifhe canget a flu shot today. 06/10/2022 GI OV: The patientpresents today for follow-up of Crohn's ileocolitis. We changed hisInflectra infusion to 10 mg every 6 weeks with his most recent infusion 05/27/2022. He has been doing quite well sincethis change was made. Denies any fever, chills, night sweats. He has gained approximately 3 kg in the interim since his last office visit. He has had some increased burpingintermittently. Otherwise denies nausea, vomiting, dysphagia,heartburn or indigestion. Has continuation of nasal drainage and ear congestion. He has not been evaluated by ENT. Denies abdominal pain. Bowel movement 2 times dailyof formed stools. No melena or hematochezia. 12/08/2022 GI OV:The patient presents today for routine follow-up of Crohn's ileocolitis. He also has somecontinued complaints of burpingtoday. He has been compliant with Inflectra 10 mg/kg every 6 weeks IVwith most recent infusion 11/30/2022. He is feeling very wellfrom a Crohn's perspective. He denies any intra or extraintestinal manifestations of disease. No abdominal pain. Having 1-2 formed bowel movements daily. Denies melena or hematochezia. Denies nausea or vomiting. He does note somecontinued burping howeverwith mild heartburn and reflux at times. He reports famotidine was helpful for symptoms but did not completely resolve. He does useas needed Tums with good relief of symptoms. 03/20/2023olo:- The examined portion of the ileum was normal. - Mild inflammation in a portion of the cecum with loss of vascularity, edema and friability. - Surveillance biopsies taken throughout the colon with cold biopsy forceps. Estimated blood loss minimal. - Three 10 to 15 mm polyps inthe descending colon, removed using lift and cut [...] otherwise normal on direct and retroflexion views. Pathology: A) Colon, cecum, biopsy Chronic colitis with focal activity B) Ascending colon, biopsy No significant pathology C) Colon, hepatic flexure, biop sy No significant pathology D) Transverse colon, biopsy No significant pathology E) Colon, splenic flexure, biopsy No significant pathology F) Descending colon, biopsy No significant pathology G) Sigmoid colon, biopsy No significant pathology H) Rectum, biopsy No significant pathology I) Descendingcolon polyp, polypectomy Benign inflammatory polyp J) Descending colon polyp, polypectomy Benign inflammatory polyp K) Descending colon polyp, polypectomy Benign inflammatory polyp L) Sigmoid colon polyp, partial polypectomy Benign inflammatory polyp M) Rectal polyp, polypectomy Benign inflammatorypolyp COMMENT: No dysplasia or granulomas identified in any of the specimens. Repeat in 2 yrs. 06/13/2023OV ([place]):Patient returns today for a routine 6-month follow-up. Previously managedby Sangeetha Wright DNP. He states he continues to do well onInfliximab. Last infusion was . He states that he is feeling well. Has a Ross type III or V bowel movement once or twice daily. Denies unintentional weight loss,heartburn, abdominal pain,melena, hematochezia, or mucus in his stools. He believes he had his fall 2022 flu shot. He does see dermatology yearly next appointment is in August. Sees the dentist every 6 months but does not routinely see the eye doctor have a dilated eye exam. He will graduate this spring from [employer] but plans on staying local for some time. 07/29/2023 labs: B12 446, vitamin D 26L, magnesium 1.9, AST 17, ALT 13, BUN/CR 14/0.86, WBC 6.90, H&H 14.2/44.2, PLT 250 01/30/2024(OV) [place]:Patient presents today for routine 6-month follow- up. He had his last infusion on January 08, exactly 3 weeks ago. He states that unfortunately due to some of the Internet outagesespecially in [place],his infusion was delayed from 6 weeks to almost 2-1/2 months. Since then he has been having intermittent hematochezia. He reportsoccasionally there is enough blood to discolor the toilet bowl water but normally it is in the stool and small amounts on the toilet paper. He denies any other GI symptoms. He states he has no abdominal pain, no nausea, n o vomiting,no recurrent heartburn. He has a Ross type III or IV bowel movement dailywithout melenaor mucus present in his stools. Patient denies any unintentional weight loss. He does question obtaining his flu vaccine today as well as when he is due for his next colonoscopy. Patient did have COVID in Decemberand is aware that he should wait 90 days to obtain his next COVID booster. IBD History - Diagnosis:Crohn's ileocolitisinitially diagnosed around the age of [age] - Previous treatments:6-mercaptopurineand Apriso;Humira(failure due to active diseasewithnormal activity level and no evidence of antibodies);Stelara (infusion reaction) - Current treatments:Remicade 5 mg/kg every 8 weeks (started 05/11/2021) nowInflectra 10mg/kg q6 weeks(09/2021) - IBD surgeries: None - Extraintestinal manifestations (joint, eye, mouth ulcers, skin lesions): None - Upper GI or Perianal involvement: None - FHx of IBD or CRC:Mother with history of ulcerative colitis. on EntyvioReports maternal cousin with history of Crohn's disease. - Smoking history:The patient is a lifetime non-smoker. - Social history:Denies any recreational or IV drug use. Denies medical marijuana use. Deniesalcohol intake. Graduates spring 2023 from [employer]. he is unmarried. No further complaints or concerns today. Physical Exam Vitals & Measurements HR:71(Monitored) RR:17 BP:110/80 SpO2:97% WT:69.1kg WT:69.100kg(Dosing) General:Alert and oriented, No acute distress, appears stated age HENT:Normocephalic, normal hearing Respiratory: Respiration are non-labored, pt speaking in complete sentences,and no evidence of respiratory distress is noted Integumentary:Exposed skin viewable is dry and intact Psychiatric:Cooperative, appropriate mood & affect, Normal judgement Assessment/Plan 1.Crohn's ileocolitis - Patient started Remicade 04/2021.Switch toInflectra 5mg/kg IV 09/2021 per insurance requirement.IncreasedInflectra from 5 mg/kg to 10 mg/kg every 6 weeks (low activity levels, active disease on colonoscopy, increased GI complaints). - Pt experiencing BRBPR 2/2 to delay in infusions. Treat flare and follow up. Treat with 8 weeks Budesonide currently, if coverage doesn't allow will order Prednisone taper. - Continue q6m labs with infusions. Will obtain infliximab levels off steroid in and re-evaluate pts current status. -Obtain fecal calprotectin now and before infusion. - If sxs not improving, will obtain CTE. -Recommendedannual eye exam IBD Health Maintenance: High risk colon cancerscreening:Due03/20/25 Drug toxicity monitoring/counseling: Ordered per above Drug monitoring:Ordered per above Age-appropriate cancer screening: Dermatology OV 08/2023, repeated annually Bone disease: vitamin D levell: previously low. Continue to monitor Vaccination: Annualinfluenza vaccine completed today. ObtainCOVID vaccination per CDC recommendation.Prevnar 13 vaccination 06/09/2021. Pneumovax administered 11/2022. Shingles vaccination 1 of 2 completed 05/2023 Live vaccine precautions: Patient should not receivelive vaccines while on immunosuppression. Depression: screen prn. Smoking cessation: n/a Medication compliance: no concerns 2.Burping - Not addressed today 2/2 IBD flare. Patient had EGD 01/2022 which demonstratedno concerningfindings in the esophagus, stomach, duodenum He has trialed famotidineand Tums without significant improvement in symptoms Patient self discontinued pantoprazole. -Reports resolution of symptoms. Surveillancecolonoscopy due March 20, 2025. GI follow up in 3months, sooner if needed. I have spent 42minutes in evaluation, education and documentation of this pt in both face to face and non-face to face activities. Problem List/Past Medical History Ongoing Crohn's ileocolitis Procedure/Surgical History Colonoscopy| Service Date: 3Colonoscopy| Service Date: 02/10/2022Endoscopy| Service Date: 2Colonoscopy| Service Date: 12/07/2020olonoscopy| Service Date: 04/08/2020Colonoscopy| Service Date: 10/26/2019Extraction of wisdom tooth Medications budesonide(budesonide 9 mg oral tablet, extended release), 9 mg= 1 tab, PO, qAM, 1 refills cholecalciferol(D3 50 mcg (2000 intl units) oral capsule) inFLIXimab(Remicade 100 mg intravenous injection), See Instructions influenza virus vaccine, inactivated(influenza virus vaccine, inactivated preservative-free TRIvalent IM susp), 0.5 mL, IM, ONCE multivitamin, 1 tab, PO, Daily nirmatrelvir-ritonavir(Paxlovid 300 mg-100 mg Dose Pack oral tablet), See Instructions Allergies Catshay feveer symptoms Stelarachest pain Social History Smoking Status Never smoked cigarettes Alcohol - Denies Alcohol Use Substance Abuse - Denies Substance Abuse Tobacco - Denies Tobacco Use Family History Ulcerative colitis: Mother. Health Status Family Member(s) Immunizations Vaccine Date Status zoster vaccine, inactivated 06/13/2023 Given SARS-CoV-2 (COVID-19) mRNA-vacc - [id number] 02/24/2023 Recorded pneumococcal 23-valent vaccine 12/08/2022 Given SARS-CoV-2 mRNA (Pfizer 12+) bivalent 02/20/2022 Recorded influenza virus vaccine, inactivated 02/14/2022 Given pneumococcal 23-valent vaccine 06/09/2021 Recorded SARS-CoV-2 mRNA (tozinameran 5y-11y) 06/09/2021 Recorded pneumococcal 13-valent vaccine 06/09/2021 Recorded SARS-CoV-2 mRNA (tozinameran 5y-11y) 12/31/2020 Recorded SARS-CoV-2 mRNA (tozinameran 5y-11y) 07/28/2020 Recorded SARS-CoV-2 mRNA (tozinameran 5y-11y) 07/07/2020 Recorded meningococcal group B vaccine 11/06/2018 Recorded meningococcal conjugate vaccine 10/18/2017 Recorded meningococcal group B vaccine 10/18/2017 Recorded hepatitis B pediatric vaccine 10/29/2015 Recorded hepatitis B pediatric vaccine 07/27/2015 Recorded hepatitis B pediatric vaccine 06/29/2015 Recorded human papillomavirus vaccine 01/05/2014 Recorded human papillomavirus vaccine 12/05/2013 Recorded human papillomavirus vaccine 11/05/2013 Recorded human papillomavirus vaccine 12/27/2012 Recorded meningococcal conjugate vaccine 10/12/2012 Recorded tetanus/diphtheria/pertuss, acel (Tdap) 10/12/2012 Recorded human papillomavirus vaccine 10/12/2012 Recorded hepatitis A pediatric vaccine 10/21/2011 Recorded hepatitis A pediatric vaccine 03/03/2011 Recorded influenza virus vaccine, H1N1 04/04/2009 Recorded poliovirus vaccine, inactivated 11/23/2006 Recorded measles/mumps/rubella virus vaccine 11/23/2006 Recorded varicella virus vaccine 11/23/2006 Recorded diphtheria/tetanus/pertuss, acel (DTaP) 11/23/2006 Recorded diphtheria/tetanus/pertuss, acel (DTaP) 04/21/2003 Recorded poliovirus vaccine, inactivated 01/06/2003 Recorded pneumococcal 13-valent vaccine 2002 Recorded varicella virus vaccine 2002 Recorded haemophilus b conjugate (HbOC) vaccine 2002 Recorded hepatitis B pediatric vaccine 2002 Recorded measles/mumps/rubella virus vaccine 2002 Recorded pneumococcal 13-valent vaccine 04/15/2002 Recorded diphtheria/tetanus/pertuss, acel (DTaP) 04/15/2002 Recorded pneumococcal 13-valent vaccine 02/11/2002 Recorded influenza virus vaccine, inactivated 02/11/2002 Recorded hepatitis B pediatric vaccine 02/11/2002 Recorded diphtheria/tetanus/pertuss, acel (DTaP) 02/11/2002 Recorded poliovirus vaccine, inactivated 02/11/2002 Recorded haemophilus b Vaccine Unspecified 02/11/2002 Recorded poliovirus vaccine, inactivated 01/14/2002 Recorded poliovirus vaccine, inactivated 2001 Recorded pneumococcal 13-valent vaccine 2001 Recorded influenza virus vaccine, inactivated 2001 Recorded hepatitis B pediatric vaccine 2001 Recorded diphtheria/tetanus/pertuss, acel (DTaP) 2001 Recorded haemophilus b Vaccine Unspecified 2001 Recorded Recommendations Health Maintenance Pending(in the next year) OverDue Adult Influenza Vaccine due11/12/23and every 1year Body Mass Index due12/09/23and every 366day Due Adult COVID-19 Vaccination due01/30/24Unknown Frequency Adult Social Determinants of Health Screening due01/30/24Unknown Frequency Adult Tdap/Td Vaccine due01/30/24Unknown Frequency Hepatitis C Screening due01/30/24One-time only Lipid Screening due01/30/24Unknown Frequency Shingles Vaccine due01/30/24One-time only Satisfied(in the past 1 year) Satisfied Shingles Vaccine on06/13/23.Satisfied by BECKY Rawls Amber Electronic Signature on File Electronically Reviewed/Signed by: Doreen Styles PA-C Author Signature Dt/Tm:01/30/2024 02:16 PM Division of Gastroenterology JUWAN Patient Care team information Care Team Personnel Name: MD Wyatt Jonathan D Position: Physician - Family Med Member Role: Lifetime Relationship Address: [address] [place] [address] Name: BECKY Wright Janet Griffith Position: Nurse Pract - Pulmonary Med Member Role: Lifetime Relationship Address: [address] [place] [id number] Name: BECKY Canas Katrina M Position: Referring Member Role: Primary Care Provider Address: [address] [place] [address] Care Team Related Persons Name: KATIE BAUTISTA Name: KATIE BAUTISTA"
--- OUTSIDE RECORDS SUMMARY | 2024-04-21 09:25 | External Medical Summary | Continuity of Care Document ---
Author Name Unknown Organization [address] Address [address] [place] [id number] Care Team Providers Care Black And White Printer Operator Name Role Phone No, Referring Primary Care Physician Unavailab le [facility] [id number] Date(s): 04/05/24 - 04/05/[address] [address] [phone] Encounter Diagnosis Anxiety(Discharge Diagnosis) - 04/05/24 Serum calcium elevated(Discharge Diagnosis) - 04/05/24 Elevated hemoglobin(Discharge Diagnosis) - 04/05/24 Bleeding nose(Discharge Diagnosis) - 04/05/24 Deviated septum(Discharge Diagnosis) - 04/05/24 Discharge Disposition: Home or Self Care Attending Physician: BECKY Lovelace Tara Referring Physician: BECKY Lovelace Tara Allergies, Adverse Reactions, Alerts Substance Criticality Severity Reaction Reaction Severity Status Cats hay feveer symptoms Active Stelara chest pain Active Assessment and Plan Extracted from: Title:ER follow up Author:BECKY Lovelace Tara Date :04/05/24 1.Anxiety Acute/Chronic: chronic Goal:Resolution/ control Status:stable/controlled Data: records/pt report Plan: He will look for therapist in the area or online. Can see if therapist can recommend possible psych if needed. He wants to try therapy first and not start meds atthis time. 2.Serum calcium elevated Acute/Chronic: chronic Goal:Resolution/ control Status:stable/controlled Data: records/pt report Plan: Most likely due to dehydration but will repeat cmp 3.Elevated hemoglobin Acute/Chronic: chronic Goal:Resolution/ control Status:stable/controlled Data: records/pt report Plan: Most likely due to dehydration but will repeat cbc,iron studies 4.Bleeding nose 5.Deviated septum Acute/Chronic: chronic Goal:Resolution/ control Status:stable/controlled Data: records/pt report Plan: History of bloody noses. CT showed deviated septum. Will refer to ENT. time spent reviewing chart, face to face visit, ordersand documentation: 36 min Immunizations Given and Recorded Vaccine Date Status Refusal Reason influenza virus vaccine, inactivated 01/30/24 Give n influenza virus vaccine, inactivated 02/14/22 Give n influenza virus vaccine, inactivated 02/11/02 Toño rded influenza virus vaccine, inactivated 01 Toño rded zoster vaccine, inactivated 06/13/23 Given SARS-CoV-2 (COVID-19) mRNA-vacc - [id number] 02/24/23 Recorded pneumococcal 23-valent vaccine 12/08/22 Given [...] b Vaccine Unspecified 01 Recorde d Medications D3 50 mcg (2000 intl units) oral capsule Start: 01/30/24 1:35:00 PM EDT Start Date: 01/30/24 Status: Ordered multivitamin Start: 05/21/20 10:21:00 AM EST, 1 tab, PO, Daily Start Date: 05/21/20 Status: Ordered Remicade 100 mg intravenous injection Start: 07/29/21 10:21:00 AM EDT, See Instructions, Inflectra 10mg/kg every 6 weeks. Start Date: 07/29/21 Status: Ordered Mental Status 04/05/24 Barriers to Learning one year None evide nt Mandatory Health Literacy Documentation Yes Health Literacy Communication Barriers N ever Primary Language Moldovan Problem List Condition Confirmation Course Effective Dates Status Health St atus Informant Crohn's ileocolitis Confirmed Active Diagnosis Diagnosis Type Effective Dates Health Status Clinical Service Informant Anxiety Discharge Diagnosis 04/05/24 Non-Specified Serum calcium elevated Discharge Diagnosis 04/05/24 Non-Specified Elevated hemoglobin Discharge Diagnosis 04/05/24 Non-Specified Bleeding nose Discharge Diagnosis 04/05/24 Non-Specified Deviated septum Discharge Diagnosis 04/05/24 Non-Specified Procedures Procedure Date Related Diagnosis Body [...] otherwise normal on direct and retroflexion views. 2A) Colon, cecum, biopsy Chronic colitis with focal [...] granulomas identified in any of the specimens 3Repeat colonoscopy in 2 years for crohns surveillance. 4Erythematous mucosa in the descending colon. Three [...] to oldest [Reference Range]: 1 Patient Weight 67.7 kg (04/05/24 9:30 AM) Heart Rate 95 bpm (04/05/24 9:30 AM) Respiratory Rate 18 br/min (04/05/24 9:30 AM) Blood Pressure 106/54mmHg (04/05/24 9:30 AM) Social History Social History Type Response Smoking Status Never smoked cigaret jaret Sex Male Sex Representation Male (finding) [facility] Outpt Note * BECKY Lovelace Tara: PERFORM Event Display: [facility] Outpt Note Authored Date: Chief Complaint f/u [facility] ER 03/22/24- states had panic attack, dehydrated. States occas "mind races", talking about getting appt with therapist History of Present Illness Went to ER on 03/22/2024. Was stressed at work. Phil Campbell anxious/panic attack. He was on prednisone for Crohn's at the time of ER visit. He was dehydrated and was given fluids. Followed by GI for Crohn's. CT of head neg acute CT abd/pel neg except fattyliver. D dimer elevatedsoCT done.CT chest no PE. fatty liver. Drug screen neg Ca 10.8 Hgb 17.8 LFT nl. EKG was obtained, which showed sinus tachycardia, rate of 121 bpm, no evidence of acute ischemia onmy interpretation. CXR showed no acute findings Never on psych meds or seen psych/therapy in the past. Has had issues with mind racing but not panic attack. Her drinks water. No coffee or energy drinks. Review of Systems Constitutional: No fever, chills, sweats Pulmonary: No shortness of breath, dyspnea with exertion, cough, hemoptysis, wheezing, chest pain. Cardiovascular: No chest pain, palpitations, syncope, edema, cyanosis, claudication, orthopnea. Neurologic: No headache, lightheadedness, dizziness, Psychiatric: No depression, anxiety, Endocrine: No weight change, heat or cold intolerance, tremor, insomnia, polyuria, polydipsia, polyphagia, abnormal hair growth, change in nails Physical Exam Vitals & Measurements HR:95(Monitored) RR:18 BP:106/54 SpO2:98% WT:67.700kg(Dosing) WT:67.7kg PHQ2 Data(Data Documented on:04/05/2024 09:30) Emotional health assessment NEGATIVE head- normocephalic eyes- PERRLA , conjunctiva clear, sclera white, anicteric, neck-no lymphadenopathy, masses, or thyromegaly, +carotid pulses, no bruits, trachea midline Pulmonary- chest expansion symmetric, CTA (clear to auscultation), eupnea, no adventitious sounds (rales, crackles, wheezes) CV (cardiovascular)- RRR no m/r/g (systolic ejection murmur, rubs, gallops), good peripheral perfusion extremitiesNo edema or erythema. skin-good turgor w/o lesions, redness, cyanosis, edema nails- no clubbing or deformities w good cap refill Neuro:Alert, Oriented Psy:no homicidal or suicidal ideations. Assessment/Plan 1.Anxiety Acute/Chronic: chronic Goal:Resolution/ control Status:stable/controlled Data: records/pt report Plan: He will look for therapist in the area or online. Can see if therapist can recommend possiblepsych if needed. He wants to try therapy first and not start meds atthis time. 2.Serum calcium elevated Acute/Chronic: chronic Goal:Resolution/ control Status:stable/controlled Data: records/pt report Plan: Most likely due to dehydration but will repeat cmp 3.Elevated hemoglobin Acute/Chronic: chronic Goal:Resolution/ control Status:stable/controlled Data: records/pt report Plan:Most likely due to dehydration but will repeat cbc,iron studies 4.Bleeding nose 5.Deviated septum Acute/Chronic: chronic Goal:Resolution/ control Status:stable/controlled Data: records/pt report Plan:History of bloody noses. CT showed deviated septum. Will refer to ENT. time spent reviewing chart, face to face visit, ordersand documentation: 36 min Problem List/Past Medical History Ongoing Crohn's ileocolitis Procedure/Surgical History Colonoscopy| Service Date: 3Colonoscopy| Service Date: 02/10/2022Endoscopy| Service Date: 02/10/2022olonoscopy| Service Date: 12/07/2020olonoscopy| Service Date: 04/08/2020Colonoscopy| Service Date: 10/26/2019Extraction of wisdom tooth Medications cholecalciferol(D3 50 mcg (2000 intl units) oral capsule) inFLIXimab(Remicade 100 mg intravenous injection), See Instructions multivitamin, 1 tab, PO, Daily Allergies Catshay feveer symptoms Stelarachest pain Social History Smoking Status Never smoked cigarettes Alcohol - Denies Alcohol Use Substance Abuse - Denies Substance Abuse Tobacco - Denies Tobacco Use Family History Ulcerative colitis: Mother. Health Status Family Member(s) Immunizations Vaccine Date Status influenza virus vaccine, inactivated 01/30/2024 Given zoster vaccine, inactivated 06/13/2023 Given SARS-CoV-2 (COVID-19) mRNA-vacc - [id number] 02/24/2023 Recorded pneumococcal 23-valent vaccine 12/08/2022 Given [...] Health Maintenance Pending(in the next year) OverDue Body Mass Index due12/09/23and every 366day Due Adult COVID-19 Vaccination due04/05/24Unknown Frequency Adult Social Determinants of Health Screening due04/05/24Unknown Frequency Adult Tdap/Td Vaccine due04/05/24Unknown Frequency Hepatitis C Screening due04/05/24One-time only Lipid Screening due04/05/24Unknown Frequency Shingles Vaccine due04/05/24One-time only Due In Future Adult Influenza Vaccine not due until11/11/24and every 1year Satisfied(in the past 1 year) Satisfied Adult Influenza Vaccine on01/30/24.Satisfied by BECKY Rawls Amber Shingles Vaccine on06/13/23.Satisfied by BECKY Rawls Amber Electronic Signature on File Electronically Reviewed/Signed by: BECKY Clayton Author Signature Dt/Tm:04/05/2024 11:13 AM Department of Family Medicine TB Patient Care team information Care Team Personnel Name: MD Edmundo, Iván Davila Position: Physician - Family Med Member Role: Lifetime Relationship Address: [facility] [address] [address] [place] Name: BECKY Wright Janet Griffith Position: Nurse Pract - Pulmonary Med Member Role: Lifetime Relationship Address: [address] [place] [id number] [place] Name: No, Referring Position: Referring Member Role: Primary Care Provider Address: No Referring/Pcp Care Team Related Persons Name: KATIE BAUTISTA Name: KATIE BAUTISTA
[2024-04-21] MEDS: risperiDONE 1 MG TABLET PO SCH (13:39)
[2024-04-21] MEDS: risperiDONE 0.5 MG TABLET PO PRN (23:54)
[2024-04-22] MEDS: hydrOXYzine HCl 25 MG TAB PO PRN (02:43)
--- NOTE | 2024-04-22 08:43 | Psychiatric Progress Note ---
Date of Service April 22, 2024 Impression / Recommendations Impression KIMANI BAUTISTA is a 23-year-old man who currently lives in [place] with his parents, has a history of anxiety and Crohn's disease, and was admitted on 04/19/24 13:26 on a 201 voluntary commitment for psychosis with impaired functioning including not eating and poor attention to self care. Diagnostically consistent with unspecified psychosis with differential including panic disorder/MICHAEL vs brief psychotic disorder (family history of schizophrenia) vs MDD with psychotic features vs 2/2 steroid induced from recent prednisone use. Report of recent poor sleep but no other symptoms to suggest annette or b ipolar disorder at this time. A: Ongoing acute psychosis with thought blocking, ideas of reference, paranoia, delusions, persecution and significant self-guilt. At this point MDD with psychotic features and anxious distress vs primary psychotic disorder seem most likely. Significantly poor sleep overnight with transition to risperidone but without any side effects so far. Will start Klonopin at HS to help with sleep in effort to give risperidone trial some time to see if this will offer any benefit. He consents to use of Klonopin, reviewed side effects/benefits/alternatives though he struggles to participate meaningfully in the conversation but does request and review medication side effect handouts provided by nursing for each of his medications. MNPR-psychosis with paranoia and sense that others are talking about him or thinking about him negatively Overall, I spent a total of 35 minutes on this case including meeting with the patient, reviewing the chart, nursing report, multidisciplinary team meeting, orders, and documentation. (1) Psychotic disorder: (2) Hallucinations: (3) Anxiety: (4) Crohn disease: (5) Insomnia: Plan 04/22/2024: -Increase sertraline to 50mg daily -Start Klonopin 1mg HS po -Continue risperidone 1mg BID 04/21/2024: -Discontinue olanzapine -Start risperidone 1mg BID and 0.5mg BID prn for paranoia/psychosis 04/20/2024: The patient was admitted to the [facility]) on q15 min checks (behavioral with suicide precautions) for safety. The patient will participate in group, recreational, and milieu therapies and will be offered additional individual and family sessions as clinically appropriate. -Start sertraline 25mg daily -Start olanzapine 5mg HS po and additional 2.5mg BID prn for paranoia/psychosis -Lorazepam 0.5mg BID prn for panic attacks/agitation -Labwork: * Fasting lipid panel * HbA1c * Vit D * Vit B12 Inventory Assets Strengths: supportive relationships, willing to get treatment Needs: safety and stabilization, medication adjustment, additional coping skills, increased outpatient services Suicide Risk Level Suicide Risk Level: Moderate (q15 min suicide checks) (denies SI but with increased paranoia and anxiety, feels safe in the hospital and feels able to alert staff if he feels unsafe or needs additional support) Risk Factors Assessment Male: Yes : Yes Do You Have Access To A Gun?: Yes (father has in the home) Health Problems: Yes Mental Health Diagnoses: Yes Substance Use Disorders: No Previous Attempt: No Family History of Suicide: No Previous Psychiatric Hospitalization: No Hopelessness: No Protective Factors Assessment Employed: Yes Stable Relationships: Yes Supportive Family: Yes Interval History Identifying Information KMIANI BAUTISTA is a 23-year-old man who currently lives in [place] with his parents, has a history of anxiety and Crohn's disease, and was admitted on 04/19/24 13:26 on a 201 voluntary commitment for psychosis. Chief Complaint "Have there been a lot of bad things I've done?". Review of Systems Sleep Information Total Hours of Sleep: 1.30 Sleep Comments: Given PRN Risperdal and Vistaril Meal Information Percent Meal Consumed - Breakfast: 60 Percent Meal Consumed - Lunch: 100 Percent Meal Consumed - Dinner: 100 Subjective Subjective Patient was seen & assessed and interval progress reviewed with treatment team nursing and social work. Rated his mood and "scared", only slept an hour overnight. Today ongoing thought blocking, very distressed by difficulty determining what is real and what isn't. Struggled with fire alarm testing in the hospital this morning and received prn lorazepam with some mild benefit. Continues to feel he is doing bad things, asked to describe what he worries he is doing he references his Crohn's disease causing him to have foul smelling gas at times and worries this is resulting in him "stinking up the place". Struggles to answer most questions. He's agreeable to trial of Klonopin at to help with poor sleep. No side effects from risperidone so far that he can identify "I don't think so". Physical Exam Psychiatric Orientation: alert and oriented x 3 Apperance: appropriately dressed and appropriately groomed Eye Contact: + fair eye contact (darting around, appears to be responding to internal stimuli) Motor Behavior: no abnormal motor movements Speech: + abnormal rate/rhythm/volume of speech (soft, blocking, mumbled at times) Affect: + anxious affect and + flat affect Mood: + anxious mood Thought Process: + thought blocking Thought Content: + paranoid, + delusions, + ideas of reference and + persecution Suicidal Thoughts: denies suicidal thoughts, denies suicidal plan and denies suicidal intent Homicidal Thoughts: denies homicidal thoughts Hallucinations: + auditory hallucinations and + visual hallucinations (likely, eyes darting around during conversation) Cognition: remote memory grossly intact, attention grossly intact and language grossly intact; + recent memory not intact Estimated Intelligence: consistent with education level Insight: + limited insight Judgment: + limited judgement Vital Signs (Past 24 Hours) Last Vital Signs Temp 36.7 C 04/22/24 02:54 Pulse 106 H 04/22/24 02:54 Resp 20 04/22/24 02:54 BP 132/80 04/22/24 02:54 Pulse Ox 95 04/22/24 02:54 O2 Del Method Room Air 04/22/24 02:54 Results & Data ([facility] [[email or web address] Current Inpatient Medications Current Inpatient Medications: Current Inpatient Medications Acetaminophen (Acetaminophen 325 Mg Tab) 650 mg PO Q4H PRN PRN Reason: Headache or Minor Fever Stop: 05/19/24 13:24 Last Admin: 04/21/24 07:13 Dose: 650 mg Al Hydrox/Mg Hydrox/Simethicone (Aluminum/Magnesium Susp 30 Ml Udc) 30 ml PO Q4H PRN PRN Reason: GI Upset Stop: 05/19/24 13:24 Bismuth Subsalicylate (Bismuth Subsalicylate 262 Mg Chew) 2 tab PO Q30M PRN PRN Reason: Loose Stool/Diarrhea Stop: 05/19/24 13:24 Hydroxyzine HCl (Hydroxyzine Hcl 25 Mg Tab) 50 mg PO HSZ PRN PRN Reason: Insomnia Stop: 05/19/24 13:24 Last Admin: 04/22/24 02:43 Dose: 50 mg Hydroxyzine HCl (Hydroxyzine Hcl 25 Mg Tab) 25 mg PO Q4H PRN PRN Reason: Anxiety Stop: 05/19/24 13:24 Lorazepam (Lorazepam 0.5 Mg Tab) 0.5 mg PO BID PRN PRN Reason: Panic attack Stop: 05/20/24 10:22 Magnesium Hydroxide (Magnesium Hydroxide Susp 30 Ml Udc) 30 ml PO DAILY PRN PRN Reason: Constipation Stop: 05/19/24 13:24 Multivitamins (Multivitamin Tab) 1 tab PO DAILY CROW Stop: 05/20/24 10:59 Last Admin: 04/21/24 09:18 Dose: 1 tab Risperidone (Risperidone 1 Mg Tablet) 1 mg PO BID CROW Stop: 05/21/24 13:14 Last Admin: 04/21/24 20:52 Dose: 1 mg Risperidone (Risperidone 0.5 Mg Tablet) 0.5 mg PO BID PRN PRN Reason: paranoia/psychosis Stop: 05/21/24 12:59 Last Admin: 04/21/24 23:54 Dose: 0.5 mg Sertraline HCl (Sertraline Hcl 50 Mg Tablet) 25 mg PO QAM CROW Stop: 05/20/24 10:29 Last Admin: 04/21/24 09:18 Dose: 25 mg Sodium Chloride (Sodium Chloride 0.65% Na Soln 45 Ml ([place])) 1 - 2 sprays NA PRN PRN PRN Reason: Nasal Dryness/Congestion Stop: 05/19/24 13:24 Mental Health & Subst Abuse Tx Therapist Name of Therapist: Denies Quilting Machine Helper Name of Quilting Machine Helper: Denies Post Discharge Appointments Primary Care Physician Name Of Family Doctor/PCP: Karen Isaac
[2024-04-22] MEDS: LORazepam 0.5 MG TAB PO PRN (10:06)
[2024-04-22] MEDS: clonazePAM 1 MG TAB PO SCH (21:15)
--- NOTE | 2024-04-23 08:43 | Psychiatric Progress Note ---
Date of Service April 23, 2024 Impression / Recommendations Impression KIMANI BAUTISTA is a 23-year-old man who currently lives in [place] with his parents, has a history of anxiety and Crohn's disease, and was admitted on 04/19/24 13:26 on a 201 voluntary commitment for psychosis with impaired functioning including not eating and poor attention to self care. Diagnostically consistent with unspecified psychosis with differential including panic disorder/MICHAEL vs brief psychotic disorder (family history of schizophrenia) vs MDD with psychotic features vs 2/2 steroid induced from recent prednisone use. Report of recent poor sleep but no other symptoms to suggest annette or bipolar disorder at this time. A: Ongoing psychosis but slightly less thought blocked and less anxiety today. Seems to be responding well to risperidone so far. Slept better with Klonopin addition. MNPR-psychosis with paranoia and sense that others are talking about him or thinking about him negatively Overall, I spent a total of 25 minutes on this case including meeting with the patient, reviewing the chart, nursing report, multidisciplinary team meeting, orders, and documentation. (1) Psychotic disorder: (2) Hallucinations: (3) Anxiety: (4) Crohn disease: (5) Insomnia: Plan 04/23/2024: -Continue current medications and tx plan 04/22/2024: -Increase sertraline to 50mg daily -Start Klonopin 1mg HS po -Continue risperidone 1mg BID 04/21/2024: -Discontinue olanzapine -Start risperidone 1mg BID and 0.5mg BID prn for paranoia/psychosis 04/20/2024: The patient was admitted to the [facility] ([facility]) on q15 min checks (behavioral with suicide precautions) for safety. The patient will participate in group, recreational, and milieu therapies and will be offered additional individual and family sessions as clinically appropriate. -Start sertraline 25mg daily -Start olanzapine 5mg HS po and additional 2.5mg BID prn for paranoia/psychosis -Lorazepam 0.5mg BID prn for panic attacks/agitation -Labwork: * Fasting lipid panel * HbA1c * Vit D * Vit B12 Inventory Assets Strengths: supportive relationships, willing to get treatment Needs: safety and stabilization, medication adjustment, additional coping skills, increased outpatient services Suicide Risk Level Suicide Risk Level: Moderate (q15 min suicide checks) (denies SI but with increased paranoia and anxiety, feels safe in the hospital and feels able to alert staff if he feels unsafe or needs additional support) Suicide Risk Level Comments: Risk Factors Assessment Male: Yes : Yes Do You Have Access To A Gun?: Yes (father has in the home) Health Problems: Yes Mental Health Diagnoses: Yes Substance Use Disorders: No Previous Attempt: No Family History of Suicide: No Previous Psychiatric Hospitalization: No Hopelessness: No Protective Factors Assessment Employed: Yes Stable Relationships: Yes Supportive Family: Yes Interval History Identifying Information KIMANI BAUTISTA is a 23-year-old man who currently lives in [place] with his parents, has a history of anxiety and Crohn's disease, and was admitted on 04/19/24 13:26 on a 201 voluntary commitment for psychosis. Chief Complaint "A lot better". Review of Systems Sleep Information Total Hours of Sleep: 6.5 Sleep Comments: Given PRN Risperdal and Vistaril Meal Information Percent Meal Consumed - Breakfast: 90 Percent Meal Consumed - Lunch: 100 Percent Meal Consumed - Dinner: 100 Subjective Subjective Patient was seen & assessed and interval progress reviewed with treatment team nursing and social work. Paranoia about his Crohn's and out of context discussed guilt of watching pornography on his phone to RN. Evening group reported his mood as "pretty good". Slept overnight ~7 hours. Showered yesterday. Today reports feeling better. Credits this to feeling like he can organize his thoughts more. Reports lessening of paranoia. Denies any medication side effects. Physical Exam Psychiatric Orientation: alert and oriented x 3 Apperance: appropriately dressed and appropriately groomed Eye Contact: + fair eye contact (darting around) Motor Behavior: no abnormal motor movements Speech: + abnormal rate/rhythm/volume of speech (soft, mumbled at times) Affect: + flat affect Mood: + anxious mood Thought Process: + thought blocking (but able to speak a bit more today) Thought Content: + preoccupation, + delusions and + persecution Suicidal Thoughts: denies suicidal thoughts, denies suicidal plan and denies suicidal intent Homicidal Thoughts: denies homicidal thoughts Hallucinations: + auditory hallucinations and + visual hallucinations (likely, eyes darting around during conversation) Cognition: recent memory grossly intact, remote memory grossly intact, attention grossly intact and language grossly intact Estimated Intelligence: consistent with education level Insight: + limited insight Judgment: + limited judgement Vital Signs (Past 24 Hours) Last Vital Signs Temp 36.9 C 04/23/24 06:29 Pulse 132 H 04/23/24 06:31 Resp 16 04/23/24 06:29 BP 130/85 04/23/24 06:31 Pulse Ox 95 04/22/24 02:54 O2 Del Method Room Air 04/22/24 02:54 Results & Data ([facility]) Current Inpatient Medications Current Inpatient Medications: Current Inpatient Medications Acetaminophen (Acetaminophen 325 Mg Tab) 650 mg PO Q4H PRN PRN Reason: Headache or Minor Fever Stop: 05/19/24 13:24 Last Admin: 04/21/24 07:13 Dose: 650 mg Al Hydrox/Mg Hydrox/Simethicone (Aluminum/Magnesium Susp 30 Ml Udc) 30 ml PO Q4H PRN PRN Reason: GI Upset Stop: 05/19/24 13:24 Bismuth Subsalicylate (Bismuth Subsalicylate 262 Mg Chew) 2 tab PO Q30M PRN PRN Reason: Loose Stool/Diarrhea Stop: 05/19/24 13:24 Clonazepam (Clonazepam 1 Mg Tab) 1 mg PO HS CROW Stop: 05/22/24 21:59 Last Admin: 04/22/24 21:15 Dose: 1 mg Hydroxyzine HCl (Hydroxyzine Hcl 25 Mg Tab) 50 mg PO HSZ PRN PRN Reason: Insomnia Stop: 05/19/24 13:24 Last Admin: 04/22/24 02:43 Dose: 50 mg Hydroxyzine HCl (Hydroxyzine Hcl 25 Mg Tab) 25 mg PO Q4H PRN PRN Reason: Anxiety Stop: 05/19/24 13:24 Lorazepam (Lorazepam 0.5 Mg Tab) 0.5 mg PO BID PRN PRN Reason: Panic attack Stop: 05/20/24 10:22 Last Admin: 04/22/24 10:06 Dose: 0.5 mg Magnesium Hydroxide (Magnesium Hydroxide Susp 30 Ml Udc) 30 ml PO DAILY PRN PRN Reason: Constipation Stop: 05/19/24 13:24 Multivitamins (Multivitamin Tab) 1 tab PO DAILY CROW Stop: 05/20/24 10:59 Last Admin: 04/22/24 08:36 Dose: 1 tab Risperidone (Risperidone 1 Mg Tablet) 1 mg PO BID CROW Stop: 05/21/24 13:14 Last Admin: 04/22/24 21:15 Dose: 1 mg Risperidone (Risperidone 0.5 Mg Tablet) 0.5 mg PO BID PRN PRN Reason: paranoia/psychosis Stop: 05/21/24 12:59 Last Admin: 04/22/24 10:41 Dose: 0.5 mg Sertraline HCl (Sertraline Hcl 50 Mg Tablet) 50 mg PO QAM [facility] Stop: 05/23/24 08:59 Sodium Chloride (Sodium Chloride 0.65% Na Soln 45 Ml ([place])) 1 - 2 sprays NA PRN PRN PRN Reason: Nasal Dryness/Congestion Stop: 05/19/24 13:24 Mental Health & Subst Abuse Tx Therapist Name of Therapist: Denies Car Dumper Operator Name of Car Dumper Operator: Denies Post Discharge Appointments Primary Care Physician Name Of Family Doctor/PCP: Karen Isaac
[2024-04-23] MEDS: SERTRALINE HCL 50 MG TABLET PO SCH (09:07)
--- NOTE | 2024-04-24 08:57 | Psychiatric Progress Note ---
Date of Service April 24, 2024 Impression / Recommendations Impression KIMANI BAUTISTA is a 23-year-old man who currently lives in [place] with his parents, has a history of anxiety and Crohn's disease, and was admitted on 04/19/24 13:26 on a 201 voluntary commitment for psychosis with impaired functioning including not eating and poor attention to self care. Diagnostically consistent with unspecified psychosis with differential including panic disorder/MICHAEL vs brief psychotic disorder (family history of schizophrenia) vs MDD with psychotic features vs 2/2 steroid induced from recent prednisone use. Report of recent poor sleep but no other symptoms to suggest annette or bipolar disorder at this time. A: Ongoing psychosis, ongoing anxiety. Gets easily confused, mistook me later in the day for someone else. He is finding the medications helpful, monitoring elevated HR as this can occur with risperidone. MNPR-psychosis with paranoia and sense that others are talking about him or thinking about him negatively Overall, I spent a total of 30 minutes on this case including meeting with the patient, reviewing the chart, nursing report, multidisciplinary team meeting, orders, and documentation. (1) Psychotic disorder: (2) Hallucinations: (3) Anxiety: (4) Crohn disease: (5) Insomnia: Plan 04/24/2024: -Consider further risperidone titration depending on HR tomorrow AM 04/23/2024: -Continue current medications and tx plan 04/22/2024: -Increase sertraline to 50mg daily -Start Klonopin 1mg HS po -Continue risperidone 1mg BID 04/21/2024: -Discontinue olanzapine -Start risperidone 1mg BID and 0.5mg BID prn for paranoia/psychosis 04/20/2024: The patient was admitted to the [facility] ([facility] unit) on q15 min checks (behavioral with suicide precautions) for safety. The patient will participate in group, recreational, and milieu therapies and will be offered additional individual and family sessions as clinically appropriate. -Start sertraline 25mg daily -Start olanzapine 5mg HS po and additional 2.5mg BID prn for paranoia/psychosis -Lorazepam 0.5mg BID prn for panic attacks/agitation -Labwork: * Fasting lipid panel * HbA1c * Vit D * Vit B12 Inventory Assets Strengths: supportive relationships, willing to get treatment Needs: safety and stabilization, medication adjustment, additional coping skills, increased outpatient services Suicide Risk Level Suicide Risk Level: Moderate (q15 min suicide checks) (denies SI but with increased paranoia and anxiety, feels safe in the hospital and feels able to alert staff if he feels unsafe or needs additional support) Suicide Risk Level Comments: Risk Factors Assessment Male: Yes : Yes Do You Have Access To A Gun?: Yes (father has in the home) Health Problems: Yes Mental Health Diagnoses: Yes Substance Use Disorders: No Previous Attempt: No Family History of Suicide: No Previous Psychiatric Hospitalization: No Hopelessness: No Protective Factors Assessment Employed: Yes Stable Relationships: Yes Supportive Family: Yes Interval History Identifying Information KIMANI BAUTISTA is a 23-year-old man who currently lives in [place] with his parents, has a history of anxiety and Crohn's disease, and was admitted on 04/19/24 13:26 on a 201 voluntary commitment for psychosis. Chief Complaint "I apologize, I'm not sure I'm keeping my appointments on a timely basis". Review of Systems Sleep Information Total Hours of Sleep: 5.25 Sleep Comments: Given PRN Risperdal and Vistaril Meal Information Percent Meal Consumed - Breakfast: 80 Percent Meal Consumed - Lunch: 100 Percent Meal Consumed - Dinner: 75 Subjective Subjective Patient was seen & assessed and interval progress reviewed with treatment team nursing and social work. Nose bleed last evening. Rated mood as "pretty good" last evening. Visited with his parents last evening. Today reports ongoing improvement in his thought organization but still with significant anxiety and belief he is doing the wrong things. Worries he missed his appointment with me and apologizes for this. Attempted to reiterate that he isn't breaking any rules on the unit. He reflected on recent "spiral" after work incident with two invoices being paid. References that he gets concerned about "auditors getting mad". Reviewed elevated BP and HR this morning. He denies any symptoms of chest pain, SOB, palpitations, vision changes nor headache. Physical Exam Psychiatric Orientation: alert and oriented x 3 Apperance: appropriately dressed and appropriately groomed Eye Contact: + fair eye contact (darting around) Motor Behavior: no abnormal motor movements Speech: + abnormal rate/rhythm/volume of speech (soft, mumbled at times) Affect: + flat affect Mood: + anxious mood Thought Process: + thought blocking (still fairly prominent) Thought Content: + preoccupation, + paranoid, + delusions and + persecution Suicidal Thoughts: denies suicidal thoughts, denies suicidal plan and denies suicidal intent Homicidal Thoughts: denies homicidal thoughts Hallucinations: + visual hallucinations (possible, lessening); no auditory hallucinations (he denies today) Cognition: recent memory grossly intact, remote memory grossly intact, attention grossly intact and language grossly intact Estimated Intelligence: consistent with education level Insight: + limited insight Judgment: + limited judgement Vital Signs (Past 24 Hours) Last Vital Signs Temp 36.6 C 04/24/24 04:22 Pulse 111 H 04/24/24 04:23 Resp 18 04/24/24 04:22 BP 144/101 H 04/24/24 04:23 Pulse Ox 97 04/24/24 04:22 O2 Del Method Room Air 04/24/24 04:22 Results & Data ([facility]) Current Inpatient Medications Current Inpatient Medications: Current Inpatient Medications Acetaminophen (Acetaminophen 325 Mg Tab) 650 mg PO Q4H PRN PRN Reason: Headache or Minor Fever Stop: 05/19/24 13:24 Last Admin: 04/21/24 07:13 Dose: 650 mg Al Hydrox/Mg Hydrox/Simethicone (Aluminum/Magnesium Susp 30 Ml Udc) 30 ml PO Q4H PRN PRN Reason: GI Upset Stop: 05/19/24 13:24 Bismuth Subsalicylate (Bismuth Subsalicylate 262 Mg Chew) 2 tab PO Q30M PRN PRN Reason: Loose Stool/Diarrhea Stop: 05/19/24 13:24 Clonazepam (Clonazepam 1 Mg Tab) 1 mg PO HS CROW Stop: 05/22/24 21:59 Last Admin: 04/23/24 21:31 Dose: 1 mg Hydroxyzine HCl (Hydroxyzine Hcl 25 Mg Tab) 50 mg PO HSZ PRN PRN Reason: Insomnia Stop: 05/19/24 13:24 Last Admin: 04/22/24 02:43 Dose: 50 mg Hydroxyzine HCl (Hydroxyzine Hcl 25 Mg Tab) 25 mg PO Q4H PRN PRN Reason: Anxiety Stop: 05/19/24 13:24 Lorazepam (Lorazepam 0.5 Mg Tab) 0.5 mg PO BID PRN PRN Reason: Panic attack Stop: 05/20/24 10:22 Last Admin: 04/22/24 10:06 Dose: 0.5 mg Magnesium Hydroxide (Magnesium Hydroxide Susp 30 Ml Udc) 30 ml PO DAILY PRN PRN Reason: Constipation Stop: 05/19/24 13:24 Multivitamins (Multivitamin Tab) 1 tab PO DAILY CROW Stop: 05/20/24 10:59 Last Admin: 04/23/24 09:06 Dose: 1 tab Risperidone (Risperidone 1 Mg Tablet) 1 mg PO BID CROW Stop: 05/21/24 13:14 Last Admin: 04/23/24 21:30 Dose: 1 mg Risperidone (Risperidone 0.5 Mg Tablet) 0.5 mg PO BID PRN PRN Reason: paranoia/psychosis Stop: 05/21/24 12:59 Last Admin: 04/22/24 10:41 Dose: 0.5 mg Sertraline HCl (Sertraline Hcl 50 Mg Tablet) 50 mg PO QAM CROW Stop: 05/23/24 08:59 Last Admin: 04/23/24 09:07 Dose: 50 mg Sodium Chloride (Sodium Chloride 0.65% Na Soln 45 Ml ([place])) 1 - 2 sprays NA PRN PRN PRN Reason: Nasal Dryness/Congestion Stop: 05/19/24 13:24 Mental Health & Subst Abuse Tx Therapist Name of Therapist: [facility] - First episode psychosis program) Therapist's Date of Therapist Appointment: 05/06/24 Time of Therapist Appointment: 11AM Therapy Appointment Comment: In person - [address] [facility] [place] [address] Grading Clerk Name of Grading Clerk: Denies Post Discharge Appointments Primary Care Physician Name Of Family Doctor/PCP: Karen Isaac
[2024-04-25 06:45] VITALS: O2SAT 97
--- NOTE | 2024-04-25 08:55 | Psychiatric Progress Note ---
Date of Service April 25, 2024 Impression / Recommendations Impression KIMANI BAUTISTA is a 23-year-old man who currently lives in [place] with his parents, has a history of anxiety and Crohn's disease, and was admitted on 04/19/24 13:26 on a 201 voluntary commitment for psychosis with impaired functioning including not eating and poor attention to self care. Diagnostically consistent with unspecified psychosis with differential including panic disorder/MICHAEL vs brief psychotic disorder (family history of schizophrenia) vs MDD with psychotic features vs 2/2 steroid induced from recent prednisone use. Report of recent poor sleep but no other symptoms to suggest annette or bipolar disorder at this time. A: Ongoing psychosis but lessening a bit, seems to be responding well to risperidone. Still with a lot of reassurance seeking and guilt. Prominent anxiety component to initiation of psychosis. No evidence for facial droop today, CN assessment intact, he denies any symptoms of EPS and none observed. Will increase risperidone to further target symptoms which he is agreeable to, tolerating medications without side effects. MNPR-psychosis with paranoia and frequent guilt Overall, I spent a total of 35 minutes on this case including meeting with the patient, reviewing the chart, nursing report, multidisciplinary team meeting, orders, and documentation. (1) Psychotic disorder: (2) Hallucinations: (3) Anxiety: (4) Crohn disease: (5) Insomnia: Plan 04/25/2024: -Nasal saline given dry air -Increase risperidone to 1mgqAM and 3mg HS. 04/24/2024: -Consider further risperidone titration depending on HR tomorrow AM 04/23/2024: -Continue current medications and tx plan 04/22/2024: -Increase sertraline to 50mg daily -Start Klonopin 1mg HS po -Continue risperidone 1mg BID 04/21/2024: -Discontinue olanzapine -Start risperidone 1mg BID and 0.5mg BID prn for paranoia/psychosis 04/20/2024: The patient was admitted to the [facility] ([facility] mental [facility]) on q15 min checks (behavioral with suicide precautions) for safety. The patient will participate in group, recreational, and milieu therapies and will be offered additional individual and family sessions as clinically appropri ate. -Start sertraline 25mg daily -Start olanzapine 5mg HS po and additional 2.5mg BID prn for paranoia/psychosis -Lorazepam 0.5mg BID prn for panic attacks/agitation -Labwork: * Fasting lipid panel * HbA1c * Vit D * Vit B12 Inventory Assets Strengths: supportive relationships, willing to get treatment Needs: safety and stabilization, medication adjustment, additional coping skills, increased outpatient services Suicide Risk Level Suicide Risk Level: Moderate (q15 min suicide checks) (denies SI but with increased paranoia and anxiety, feels safe in the hospital and feels able to alert staff if he feels unsafe or needs additional support) Suicide Risk Level Comments: Risk Factors Assessment Male: Yes : Yes Do You Have Access To A Gun?: Yes (father has in the home) Health Problems: Yes Mental Health Diagnoses: Yes Substance Use Disorders: No Previous Attempt: No Family History of Suicide: No Previous Psychiatric Hospitalization: No Hopelessness: No Protective Factors Assessment Employed: Yes Stable Relationships: Yes Supportive Family: Yes Interval History Identifying Information KIMANI BAUTISTA is a 23-year-old man who currently lives in [place] with his parents, has a history of anxiety and Crohn's disease, and was admitted on 04/19/24 13:26 on a 201 voluntary commitment for psychosis. Chief Complaint "I slept better". Review of Systems Sleep Information Total Hours of Sleep: 6 Sleep Comments: HS Risperdal and Klonopin Meal Information Percent Meal Consumed - Breakfast: 100 Percent Meal Consumed - Lunch: 100 Percent Meal Consumed - Dinner: 100 Subjective Subjective Patient was seen & assessed and interval progress reviewed with treatment team nursing and social work. Another episode of bloody nose. Talked with parents on the phone, showered and did laundry. Helped teach a peer how to do sodoku. Continues to feel guilty and apologizes frequently. Today reports his mood is improving and feels he slept better. Continues to find risperidone helpful. Able to discuss more of the recent stressors at work and fearing he'd make a mistake and make people "cry or yell" as "things got more hectic". Reflects that he recalls feeling like his mind was playing tricks on him while watching football games this weekend, notes it was "out of the ordinary". Engaged more with therapy dog for first time. Reports being able to color has been good and feels his day is going better. Continues to seek a lot of reassurance that he's not making mistakes or doing something wrong. He denies any other concerns or side effects. Given family report for concern of possible eye drooping reviewed any visual changes which he denies. Physical Exam Psychiatric Orientation: alert and oriented x 3 Apperance: appropriately dressed and appropriately groomed Eye Contact: + fair eye contact Motor Behavior: no abnormal motor movements Speech: + abnormal rate/rhythm/volume of speech (soft) Affect: + anxious affect and + constricted affect Mood: + anxious mood Thought Process: + thought blocking (lessening) and + circumstantial thought process Thought Content: + preoccupation, + persecution and + guilt Suicidal Thoughts: denies suicidal thoughts, denies suicidal plan and denies suicidal intent Homicidal Thoughts: denies homicidal thoughts Hallucinations: no auditory hallucinations and no visual hallucinations Cognition: recent memory grossly intact, remote memory grossly intact, attention grossly intact and language grossly intact Estimated Intelligence: consistent with education level Insight: + limited insight Judgment: + fair judgement Vital Signs (Past 24 Hours) Last Vital Signs Temp 36.7 C 04/24/24 11:35 Pulse 112 H 04/25/24 06:44 Resp 20 04/25/24 06:43 BP 129/91 04/25/24 06:44 Pulse Ox 97 04/25/24 06:43 O2 Del Method Room Air 04/25/24 06:43 Neurologic Cranial Nerves: PERRL, EOM intact bilaterally, normal facial strength, tongue midline, able to elevate shoulders bilaterally and no nystagmus Results & Data ([facility]) Current Inpatient Medications Current Inpatient Medications: Current Inpatient Medications Acetaminophen (Acetaminophen 325 Mg Tab) 650 mg PO Q4H PRN PRN Reason: Headache or Minor Fever Stop: 05/19/24 13:24 Last Admin: 04/21/24 07:13 Dose: 650 mg Al Hydrox/Mg Hydrox/Simethicone (Aluminum/Magnesium Susp 30 Ml Udc) 30 ml PO Q4H PRN PRN Reason: GI Upset Stop: 05/19/24 13:24 Bismuth Subsalicylate (Bismuth Subsalicylate 262 Mg Chew) 2 tab PO Q30M PRN PRN Reason: Loose Stool/Diarrhea Stop: 05/19/24 13:24 Clonazepam (Clonazepam 1 Mg Tab) 1 mg PO HS CROW Stop: 05/22/24 21:59 Last Admin: 04/24/24 21:06 Dose: 1 mg Hydroxyzine HCl (Hydroxyzine Hcl 25 Mg Tab) 50 mg PO HSZ PRN PRN Reason: Insomnia Stop: 05/19/24 13:24 Last Admin: 04/22/24 02:43 Dose: 50 mg Hydroxyzine HCl (Hydroxyzine Hcl 25 Mg Tab) 25 mg PO Q4H PRN PRN Reason: Anxiety Stop: 05/19/24 13:24 Lorazepam (Lorazepam 0.5 Mg Tab) 0.5 mg PO BID PRN PRN Reason: Panic attack Stop: 05/20/24 10:22 Last Admin: 04/22/24 10:06 Dose: 0.5 mg Magnesium Hydroxide (Magnesium Hydroxide Susp 30 Ml Udc) 30 ml PO DAILY PRN PRN Reason: Constipation Stop: 05/19/24 13:24 Multivitamins (Multivitamin Tab) 1 tab PO DAILY CROW Stop: 05/20/24 10:59 Last Admin: 04/24/24 08:57 Dose: 1 tab Risperidone (Risperidone 1 Mg Tablet) 1 mg PO BID CROW Stop: 05/21/24 13:14 Last Admin: 04/24/24 21:06 Dose: 1 mg Risperidone (Risperidone 0.5 Mg Tablet) 0.5 mg PO BID PRN PRN Reason: paranoia/psychosis Stop: 05/21/24 12:59 Last Admin: 04/22/24 10:41 Dose: 0.5 mg Sertraline HCl (Sertraline Hcl 50 Mg Tablet) 50 mg PO QAM CROW Stop: 05/23/24 08:59 Last Admin: 04/24/24 08:57 Dose: 50 mg Sodium Chloride (Sodium Chloride 0.65% Na Soln 45 Ml ([place])) 1 - 2 sprays NA PRN PRN PRN Reason: Nasal Dryness/Congestion Stop: 05/19/24 13:24 Mental Health & Subst Abuse Tx Therapist Name of Therapist: [place] - First episode psychosis program) Therapist's Date of Therapist Appointment: 05/06/24 Time of Therapist Appointment: 11AM Therapy Appointment Comment: In person - [address] [place] [address] Log Stacker Operator Name of Log Stacker Operator: Denies Post Discharge Appointments Primary Care Physician Name Of Family Doctor/PCP: Karen Isaac
[2024-04-25] MEDS: SODIUM CHLORIDE 0.65% NA SOLN 45 ML (OCEAN) SCH (21:04)
[2024-04-25] MEDS: risperiDONE 1 MG TABLET PO SCH (21:05)
[2024-04-26 06:38] VITALS: RESP 16
[2024-04-26] MEDS: risperiDONE 1 MG TABLET PO SCH (08:46)
--- NOTE | 2024-04-26 08:55 | Psychiatric Progress Note ---
Date of Service April 26, 2024 Impression / Recommendations Impression KIMANI BAUTISTA is a 23-year-old man who currently lives in [place] with his parents, has a history of anxiety and Crohn's disease, and was admitted on 04/19/24 13:26 on a 201 voluntary commitment for psychosis with impaired functioning including not eating and poor attention to self care. Diagnostically consistent with unspecified psychosis with differential including panic disorder/MICHAEL vs brief psychotic disorder (family history of schizophrenia) vs MDD with psychotic features vs 2/2 steroid induced from recent prednisone use. Report of recent poor sleep but no other symptoms to suggest annette or bipolar disorder at this time. A: No evidence for acute psychosis today, thought process improving, lessening of guilt. Having some dizziness today from increased risperidone dose so will reduce slightly. MNPR-recent psychosis with paranoia and frequent guilt Overall, I spent a total of 30 minutes on this case including meeting with the patient, reviewing the chart, nursing report, multidisciplinary team meeting, orders, and documentation. (1) Psychotic disorder: (2) Hallucinations: (3) Anxiety: (4) Crohn disease: (5) Insomnia: Plan 04/26/2024: -Decrease risperidone to 1mg qAM and 2mg HS -May be able to come off MNPR tomorrow 04/25/2024: -Nasal saline given dry air -Increase risperidone to 1mgqAM and 3mg HS. 04/24/2024: -Consider further risperidone titration depending on HR tomorrow AM 04/23/2024: -Continue current medications and tx plan 04/22/2024: -Increase sertraline to 50mg daily -Start Klonopin 1mg HS po -Continue risperidone 1mg BID 04/21/2024: -Discontinue olanzapine -Start risperidone 1mg BID and 0.5mg BID prn for paranoia/psychosis 04/20/2024: The patient was admitted to the [facility] ([facility] mental [facility] unit) on q15 min checks (behavioral with suicide precautions) for safety. The patient will participate in group, recreational, and milieu therapies and will be offered additional individual and family sessions as clinically appropriate. -Start sertraline 25mg daily -Start olanzapine 5mg HS po and additional 2.5mg BID prn for paranoia/psychosis -Lorazepam 0.5mg BID prn for panic attacks/agitation -Labwork: * Fasting lipid panel * HbA1c * Vit D * Vit B12 Inventory Assets Strengths: supportive relationships, willing to get treatment Needs: safety and stabilization, medication adjustment, additional coping skills, increased outpatient services Suicide Risk Level Suicide Risk Level: Moderate (q15 min suicide checks) (denies SI but with increased paranoia and anxiety prior to admission, psychosis improving, feels safe in the hospital and feels able to alert staff if he feels unsafe or needs additional support) Suicide Risk Level Comments: Risk Factors Assessment Male: Yes : Yes Do You Have Access To A Gun?: Yes (father has in the home) Health Problems: Yes Mental Health Diagnoses: Yes Substance Use Disorders: No Previous Attempt: No Family History of Suicide: No Previous Psychiatric Hospitalization: No Hopelessness: No Protective Factors Assessment Employed: Yes Stable Relationships: Yes Supportive Family: Yes Interval History Identifying Information KIMANI BAUTISTA is a 23-year-old man who currently lives in [place] with his parents, has a history of anxiety and Crohn's disease, and was admitted on 04/19/24 13:26 on a 201 voluntary commitment for psychosis. Chief Complaint "Doing good". Review of Systems Sleep Information Total Hours of Sleep: 6.30 Sleep Comments: HS Medications Meal Information Percent Meal Consumed - Breakfast: 100 Percent Meal Consumed - Lunch: 100 Percent Meal Consumed - Dinner: 100 Subjective Subjective Patient was seen & assessed and interval progress reviewed with treatment team nursing and social work. Parents visited and felt he's showing a lot of improvement. Today reports positive mood. Less anxious today. Did have some dizziness today after increased risperidone dose. Denies any other medication side effects. He's agreeable to trying slightly reduced dose of risperidone to see if dizziness resolves. Starting to talk more about things he anticipates once returning home like when he should go back to work and asking about medication interactions with alcohol. Painting with peers today. Physical Exam Psychiatric Orientation: alert and oriented x 3 Apperance: appropriately dressed and appropriately groomed Eye Contact: + fair eye contact Motor Behavior: no abnormal motor movements Speech: + abnormal rate/rhythm/volume of speech (mild stutter at times) Affect: + constricted affect Mood: + anxious mood; no depressed mood Thought Process: + circumstantial thought process Thought Content: + preoccupation and + guilt (lessening today) Suicidal Thoughts: denies suicidal thoughts, denies suicidal plan and denies suicidal intent Homicidal Thoughts: denies homicidal thoughts Hallucinations: no auditory hallucinations and no visual hallucinations Cognition: recent memory grossly intact, remote memory grossly intact, attention grossly intact and language grossly intact Estimated Intelligence: consistent with education level Insight: + fair insight Judgment: + fair judgement Vital Signs (Past 24 Hours) Last Vital Signs Temp 36.5 C 04/26/24 06:36 Pulse 91 H 04/26/24 06:37 Resp 16 04/26/24 06:36 BP 113/76 04/26/24 06:37 Pulse Ox 97 04/25/24 06:43 O2 Del Method Room Air 04/25/24 06:43 Results & Data ([facility]) Current Inpatient Medications Current Inpatient Medications: Current Inpatient Medications Acetaminophen (Acetaminophen 325 Mg Tab) 650 mg PO Q4H PRN PRN Reason: Headache or Minor Fever Stop: 05/19/24 13:24 Last Admin: 04/21/24 07:13 Dose: 650 mg Al Hydrox/Mg Hydrox/Simethicone (Aluminum/Magnesium Susp 30 Ml Udc) 30 ml PO Q4H PRN PRN Reason: GI Upset Stop: 05/19/24 13:24 Bismuth Subsalicylate (Bismuth Subsalicylate 262 Mg Chew) 2 tab PO Q30M PRN PRN Reason: Loose Stool/Diarrhea Stop: 05/19/24 13:24 Clonazepam (Clonazepam 1 Mg Tab) 1 mg PO HS CROW Stop: 05/22/24 21:59 Last Admin: 04/25/24 21:04 Dose: 1 mg Hydroxyzine HCl (Hydroxyzine Hcl 25 Mg Tab) 50 mg PO HSZ PRN PRN Reason: Insomnia Stop: 05/19/24 13:24 Last Admin: 04/22/24 02:43 Dose: 50 mg Hydroxyzine HCl (Hydroxyzine Hcl 25 Mg Tab) 25 mg PO Q4H PRN PRN Reason: Anxiety Stop: 05/19/24 13:24 Lorazepam (Lorazepam 0.5 Mg Tab) 0.5 mg PO BID PRN PRN Reason: Panic attack Stop: 05/20/24 10:22 Last Admin: 04/22/24 10:06 Dose: 0.5 mg Magnesium Hydroxide (Magnesium Hydroxide Susp 30 Ml Udc) 30 ml PO DAILY PRN PRN Reason: Constipation Stop: 05/19/24 13:24 Multivitamins (Multivitamin Tab) 1 tab PO DAILY CROW Stop: 05/20/24 10:59 Last Admin: 04/26/24 08:46 Dose: 1 tab Risperidone (Risperidone 0.5 Mg Tablet) 0.5 mg PO BID PRN PRN Reason: paranoia/psychosis Stop: 05/21/24 12:59 Last Admin: 04/22/24 10:41 Dose: 0.5 mg Risperidone (Risperidone 1 Mg Tablet) 1 mg PO QAM CROW Stop: 05/26/24 08:59 Last Admin: 04/26/24 08:46 Dose: 1 mg Risperidone (Risperidone 1 Mg Tablet) 3 mg PO HS CROW Stop: 05/25/24 21:59 Last Admin: 04/25/24 21:05 Dose: 3 mg Sertraline HCl (Sertraline Hcl 50 Mg Tablet) 50 mg PO QAM CROW Stop: 05/23/24 08:59 Last Admin: 04/26/24 08:47 Dose: 50 mg Sodium Chloride (Sodium Chloride 0.65% Na Soln 45 Ml ([place])) 2 sprays NA BID CROW Stop: 05/25/24 20:59 Last Admin: 04/26/24 08:46 Dose: 2 sprays Mental Health & Subst Abuse Tx Therapist Name of Therapist: [place] - First episode psychosis program) Therapist's Date of Therapist Appointment: 05/06/24 Time of Therapist Appointment: 11AM Therapy Appointment Comment: In person - [address] [place] [place] [address] Professor Of Astronomy Name of Professor Of Astronomy: Denies Post Discharge Appointments Primary Care Physician Name Of Family Doctor/PCP: Karen Isaac
[2024-04-26] MEDS: risperiDONE 2 MG TABLET PO SCH (21:24)
--- NOTE | 2024-04-27 14:43 | Psychiatric Progress Note ---
Date of Service April 27, 2024 Impression / Recommendations Impression KIMANI BAUTISTA is a 23-year-old man who currently lives in [place] with his parents, has a history of anxiety and Crohn's disease, and was admitted on 04/19/24 13:26 on a 201 voluntary commitment for psychosis with impaired functioning including not eating and poor attention to self care. Diagnostically consistent with unspecified psychosis with differential including panic disorder/MICHAEL vs brief psychotic disorder (family history of schizophrenia) vs MDD with psychotic features vs 2/2 steroid induced from recent prednisone use. Report of recent poor sleep but no other symptoms to suggest annette or bipolar disorder at this time. A: Patient presents slight thought disorganization much improved from initial presentation. He denies recent episodes of paranoia. Presents fair self- esteem. Concern for generalized anxious ruminations impacting sleep onset. Demonstrating good self-care. Tolerating medications well plan to continue. MNPR-recent psychosis with paranoia and frequent guilt Overall, I spent a total of 30 minutes on this case including meeting with the patient, reviewing the chart, nursing report, multidisciplinary team meeting, orders, and documentation. (1) Psychotic disorder: (2) Hallucinations: (3) Anxiety: (4) Crohn disease: (5) Insomnia: Plan 04/27/2024: Continue medications and treatment plan. 04/26/2024: -Decrease risperidone to 1mg qAM and 2mg HS -May be able to come off MNPR tomorrow 04/25/2024: -Nasal saline given dry air -Increase risperidone to 1mgqAM and 3mg HS. 04/24/2024: -Consider further risperidone titration depending on HR tomorrow AM 04/23/2024: -Continue current medications and tx plan 04/22/2024: -Increase sertraline to 50mg daily -Start Klonopin 1mg HS po -Continue risperidone 1mg BID 04/21/2024: -Discontinue olanzapine -Start risperidone 1mg BID and 0.5mg BID prn for paranoia/psychosis 04/20/2024: The patient was admitted to the [facility] ([facility]) on q15 min checks (behavioral with suicide precautions) for safety. The patient will participate in group, recreational, and milieu therapies and will be offered additional individual and family sessions as clinically appropriate. -Start sertraline 25mg daily -Start olanzapine 5mg HS po and additional 2.5mg BID prn for paranoia/psychosis -Lorazepam 0.5mg BID prn for panic attacks/agitation -Labwork: * Fasting lipid panel * HbA1c * Vit D * Vit B12 Inventory Assets Strengths: supportive relationships, willing to get treatment Needs: safety and stabilization, medication adjustment, additional coping skills, increased outpatient services Suicide Risk Level Suicide Risk Level: Moderate (q15 min suicide checks) (denies SI but with increased paranoia and anxiety prior to admission, psychosis improving, feels safe in the hospital and feels able to alert staff if he feels unsafe or needs additional support) Suicide Risk Level Comments: Risk Factors Assessment Male: Yes : Yes Do You Have Access To A Gun?: Yes (father has in the home) Health Problems: Yes Mental Health Diagnoses: Yes Substance Use Disorders: No Previous Attempt: No Family History of Suicide: No Previous Psychiatric Hospitalization: No Hopelessness: No Protective Factors Assessment Employed: Yes Stable Relationships: Yes Supportive Family: Yes Interval History Identifying Information KIMANI BAUTISTA is a 23-year-old man who currently lives in [place] with his parents, has a history of anxiety and Crohn's disease, and was admitted on 04/19/24 13:26 on a 201 voluntary commitment for psychosis. Chief Complaint "Stutter" Review of Systems Sleep Information Total Hours of Sleep: 6.5 Sleep Comments: HS Medications Meal Information Percent Meal Consumed - Breakfast: 100 Percent Meal Consumed - Lunch: 100 Percent Meal Consumed - Dinner: 100 Subjective Subjective Patient was seen & assessed and interval progress reviewed with treatment team nursing and social work Patient reports initially being disoriented when he first came in and this has greatly improved. Reports longstanding speech stutter and wants to work with a speech therapist. Reports he is back to baseline in regards to his ability to communicate. Reports often second guessing himself at work and not getting enough reassurance from his boss. 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 Often doubts himself and wants to perform well. Complains of anxious ruminations that make it difficult for him to fall asleep at night. Reports sleep has improved with treatment. Reports past prednisone use in high school for Crohn's flareup and he is not aware of any psychiatric symptoms at that time. Reports having a younger sister at 13 years of age who he suspects has anxiety; denies other family psychiatric history. He sees himself as a "kind and understanding man". Feels that his Crohn's disease is well treated currently. He denies SI. Physical Exam Psychiatric Orientation: alert and oriented x 3 Apperance: appropriately dressed and appropriately groomed Eye Contact: + fair eye contact Motor Behavior: no abnormal motor movements Speech: + abnormal rate/rhythm/volume of speech (mild stutter at times) Affect: + anxious affect and + constricted affect Mood: + anxious mood Thought Process: goal directed thought process, + thought blocking (lessening) and + circumstantial thought process Thought Content: + preoccupation and + guilt (lessening today) Suicidal Thoughts: denies suicidal thoughts, denies suicidal plan and denies suicidal intent Homicidal Thoughts: denies homicidal thoughts Hallucinations: no auditory hallucinations and no visual hallucinations Cognition: recent memory grossly intact, remote memory grossly intact, attention grossly intact and language grossly intact Estimated Intelligence: consistent with education level Insight: + fair insight Judgment: + fair judgement Vital Signs (Past 24 Hours) Last Vital Signs Temp 36.5 C 04/27/24 06:35 Pulse 86 04/27/24 06:36 Resp 16 04/27/24 06:35 BP 112/79 04/27/24 06:36 Pulse Ox 97 04/25/24 06:43 O2 Del Method Room Air 04/25/24 06:43 Results & Data ([facility]) Current Inpatient Medications Current Inpatient Medications: Current Inpatient Medications Acetaminophen (Acetaminophen 325 Mg Tab) 650 mg PO Q4H PRN PRN Reason: Headache or Minor Fever Stop: 05/19/24 13:24 Last Admin: 04/21/24 07:13 Dose: 650 mg Al Hydrox/Mg Hydrox/Simethicone (Aluminum/Magnesium Susp 30 Ml Udc) 30 ml PO Q4H PRN PRN Reason: GI Upset Stop: 05/19/24 13:24 Bismuth Subsalicylate (Bismuth Subsalicylate 262 Mg Chew) 2 tab PO Q30M PRN PRN Reason: Loose Stool/Diarrhea Stop: 05/19/24 13:24 Clonazepam (Clonazepam 1 Mg Tab) 1 mg PO HS CROW Stop: 05/22/24 21:59 Last Admin: 04/26/24 21:24 Dose: 1 mg Hydroxyzine HCl (Hydroxyzine Hcl 25 Mg Tab) 50 mg PO HSZ PRN PRN Reason: Insomnia Stop: 05/19/24 13:24 Last Admin: 04/22/24 02:43 Dose: 50 mg Hydroxyzine HCl (Hydroxyzine Hcl 25 Mg Tab) 25 mg PO Q4H PRN PRN Reason: Anxiety Stop: 05/19/24 13:24 Lorazepam (Lorazepam 0.5 Mg Tab) 0.5 mg PO BID PRN PRN Reason: Panic attack Stop: 05/20/24 10:22 Last Admin: 04/22/24 10:06 Dose: 0.5 mg Magnesium Hydroxide (Magnesium Hydroxide Susp 30 Ml Udc) 30 ml PO DAILY PRN PRN Reason: Constipation Stop: 05/19/24 13:24 Multivitamins (Multivitamin Tab) 1 tab PO DAILY CROW Stop: 05/20/24 10:59 Last Admin: 04/27/24 09:09 Dose: 1 tab Risperidone (Risperidone 0.5 Mg Tablet) 0.5 mg PO BID PRN PRN Reason: paranoia/psychosis Stop: 05/21/24 12:59 Last Admin: 04/22/24 10:41 Dose: 0.5 mg Risperidone (Risperidone 1 Mg Tablet) 1 mg PO QAM CROW Stop: 05/26/24 08:59 Last Admin: 04/27/24 09:09 Dose: 1 mg Risperidone (Risperidone 2 Mg Tablet) 2 mg PO HS CROW Stop: 05/26/24 21:59 Last Admin: 04/26/24 21:24 Dose: 2 mg Sertraline HCl (Sertraline Hcl 50 Mg Tablet) 50 mg PO QAM CROW Stop: 05/23/24 08:59 Last Admin: 04/27/24 09:09 Dose: 50 mg Sodium Chloride (Sodium Chloride 0.65% Na Soln 45 Ml ([place])) 2 sprays NA BID CROW Stop: 05/25/24 20:59 Last Admin: 04/27/24 09:09 Dose: 2 sprays Mental Health & Subst Abuse Tx Psychiatrist Name of Psychiatrist: Jenelle Dalton Psychiatrist's Date Of Appointment With Psychiatric Provider: 05/22/2024 Time of Appointment with Psychiatrist: 1:10PM Psychiatric Appointment Comment: They will contact you if an earlier appt opens up Therapist Name of Therapist: [place] - First episode psychosis program Therapist's Date of Therapist Appointment: 05/06/24 Time of Therapist Appointment: 11AM Therapy Appointment Comment: In person - [address] [place] [facility] [place] [address] Marketing Finance Specialist Name of Marketing Finance Specialist: Denies Post Discharge Appointments Primary Care Physician Name Of Family Doctor/PCP: Karen Isaac
--- NOTE | 2024-04-28 13:16 | Psychiatric Progress Note ---
Date of Service April 28, 2024 Impression / Recommendations Impression KIMANI BAUTISTA is a 23-year-old man who currently lives in [place] with his parents, has a history of anxiety and Crohn's disease, and was admitted on 04/19/24 13:26 on a 201 voluntary commitment for psychosis with impaired functioning including not eating and poor attention to self care. A: Presents a clear thought process. Denies recent paranoia and feels safe. Good self care. Concern for tachycardia from antipsychotic and will reduce dose slightly. No signs of orthostatic hypotension, EPS, akathisia. Continues to present a flat affect. Discussed strategies to reduce stuttering speech. MNPR-recent psychosis with paranoia and frequent guilt Overall, I spent a total of 30 minutes on this case including meeting with the patient, reviewing the chart, nursing report, multidisciplinary team meeting, orders, and documentation. (1) Psychotic disorder: (2) Hallucinations: (3) Anxiety: (4) Crohn disease: (5) Insomnia: Plan 04/28/2024: Discontinue a.m. risperidone. Continue risperidone 2 mg at bedtime. 04/27/2024: Continue medications and treatment plan. 04/26/2024: -Decrease risperidone to 1mg qAM and 2mg HS -May be able to come off MNPR tomorrow 04/25/2024: -Nasal saline given dry air -Increase risperidone to 1mgqAM and 3mg HS. 04/24/2024: -Consider further risperidone titration depending on HR tomorrow AM 04/23/2024: -Continue current medications and tx plan 04/22/2024: -Increase sertraline to 50mg daily -Start Klonopin 1mg HS po -Continue risperidone 1mg BID 04/21/2024: -Discontinue olanzapine -Start risperidone 1mg BID and 0.5mg BID prn for paranoia/psychosis 04/20/2024: The patient was admitted to the [facility] ([facility] inpatient mental health unit) on q15 min checks (behavioral with suicide precautions) for safety. The patient will participate in group, recreational, and milieu therapies and will be offered additional individual and family sessions as clinically appropriate. -Start sertraline 25mg daily -Start olanzapine 5mg HS po and additional 2.5mg BID prn for paranoia/psychosis -Lorazepam 0.5mg BID prn for panic attacks/agitation -Labwork: * Fasting lipid panel * HbA1c * Vit D * Vit B12 Inventory Assets Strengths: supportive relationships, willing to get treatment Needs: safety and stabilization, medication adjustment, additional coping skills, increased outpatient services Suicide Risk Level Suicide Risk Level: Moderate (q15 min suicide checks) (denies SI but with increased paranoia and anxiety prior to admission, psychosis improving, feels safe in the hospital and feels able to alert staff if he feels unsafe or needs additional support) Suicide Risk Level Comments: Risk Factors Assessment Male: Yes : Yes Do You Have Access To A Gun?: Yes (father has in the home) Health Problems: Yes Mental Health Diagnoses: Yes Substance Use Disorders: No Previous Attempt: No Family History of Suicide: No Previous Psychiatric Hospitalization: No Hopelessness: No Protective Factors Assessment Employed: Yes Stable Relationships: Yes Supportive Family: Yes Interval History Identifying Information KIMANI BAUTISTA is a 23-year-old man who currently lives in [place] with his parents, has a history of anxiety and Crohn's disease, and was admitted on 04/19/24 13:26 on a 201 voluntary commitment for psychosis. Chief Complaint "Doing well" Review of Systems Sleep Information Total Hours of Sleep: 6.5 Sleep Comments: HS Medications Meal Information Percent Meal Consumed - Breakfast: 100 Percent Meal Consumed - Lunch: 100 Percent Meal Consumed - Dinner: 100 Subjective Subjective Patient was seen & assessed and interval progress reviewed with treatment team nursing and social work Parents visited overnight and feels patient is at baseline. On interview patient reports sleeping well through the night. Feels his thoughts are clear. Denies any paranoia and feels safe. Denies racing thoughts. Denies any dizziness or lightheadedness upon standing. No notable palpitations. Denies muscle rigidity or walking muscles. Denies SI. Continues to have a flat affect. Physical Exam Psychiatric Orientation: alert and oriented x 3 Apperance: appropriately dressed and appropriately groomed Eye Contact: + fair eye contact Motor Behavior: no abnormal motor movements Speech: + abnormal rate/rhythm/volume of speech (mild stutter at times) Affect: + depressed affect, + anxious affect, + flat affect and + constricted affect Mood: + anxious mood; no depressed mood Thought Process: goal directed thought process, + thought blocking (lessening) and + circumstantial thought process Thought Content: + preoccupation, + paranoid, + delusions, + ideas of reference, + persecution and + guilt (lessening today) Suicidal Thoughts: denies suicidal thoughts, denies suicidal plan and denies suicidal intent Homicidal Thoughts: denies homicidal thoughts Hallucinations: no auditory hallucinations and no visual hallucinations Cognition: recent memory grossly intact, remote memory grossly intact, attention grossly intact and language grossly intact Estimated Intelligence: consistent with education level Insight: + limited insight and + fair insight Judgment: + limited judgement and + fair judgement Vital Signs (Past 24 Hours) Last Vital Signs Temp 36.6 C 04/28/24 06:40 Pulse 114 H 04/28/24 06:40 Resp 16 04/28/24 06:40 BP 125/87 04/28/24 06:40 Pulse Ox 97 04/25/24 06:43 O2 Del Method Room Air 04/25/24 06:43 Results & Data ([facility]) Current Inpatient Medications Current Inpatient Medications: Current Inpatient Medications Acetaminophen (Acetaminophen 325 Mg Tab) 650 mg PO Q4H PRN PRN Reason: Headache or Minor Fever Stop: 05/19/24 13:24 Last Admin: 04/21/24 07:13 Dose: 650 mg Al Hydrox/Mg Hydrox/Simethicone (Aluminum/Magnesium Susp 30 Ml Udc) 30 ml PO Q4H PRN PRN Reason: GI Upset Stop: 05/19/24 13:24 Bismuth Subsalicylate (Bismuth Subsalicylate 262 Mg Chew) 2 tab PO Q30M PRN PRN Reason: Loose Stool/Diarrhea Stop: 05/19/24 13:24 Clonazepam (Clonazepam 1 Mg Tab) 1 mg PO HS CROW Stop: 05/22/24 21:59 Last Admin: 04/27/24 21:22 Dose: 1 mg Hydroxyzine HCl (Hydroxyzine Hcl 25 Mg Tab) 50 mg PO HSZ PRN PRN Reason: Insomnia Stop: 05/19/24 13:24 Last Admin: 04/22/24 02:43 Dose: 50 mg Hydroxyzine HCl (Hydroxyzine Hcl 25 Mg Tab) 25 mg PO Q4H PRN PRN Reason: Anxiety Stop: 05/19/24 13:24 Lorazepam (Lorazepam 0.5 Mg Tab) 0.5 mg PO BID PRN PRN Reason: Panic attack Stop: 05/20/24 10:22 Last Admin: 04/22/24 10:06 Dose: 0.5 mg Magnesium Hydroxide (Magnesium Hydroxide Susp 30 Ml Udc) 30 ml PO DAILY PRN PRN Reason: Constipation Stop: 05/19/24 13:24 Multivitamins (Multivitamin Tab) 1 tab PO DAILY CROW Stop: 05/20/24 10:59 Last Admin: 04/28/24 09:14 Dose: 1 tab Risperidone (Risperidone 0.5 Mg Tablet) 0.5 mg PO BID PRN PRN Reason: paranoia/psychosis Stop: 05/21/24 12:59 Last Admin: 04/22/24 10:41 Dose: 0.5 mg Risperidone (Risperidone 2 Mg Tablet) 2 mg PO HS CROW Stop: 05/26/24 21:59 Last Admin: 04/27/24 21:22 Dose: 2 mg Sertraline HCl (Sertraline Hcl 50 Mg Tablet) 50 mg PO QAM CROW Stop: 05/23/24 08:59 Last Admin: 04/28/24 09:13 Dose: 50 mg Sodium Chloride (Sodium Chloride 0.65% Na Soln 45 Ml ([place])) 2 sprays NA BID CROW Stop: 05/25/24 20:59 Last Admin: 04/28/24 09:24 Dose: 2 sprays Mental Health & Subst Abuse Tx Psychiatrist Name of Psychiatrist: Jenelle Dalton Psychiatrist's Date Of Appointment With Psychiatric Provider: 05/22/2024 Time of Appointment with Psychiatrist: 1:10PM Psychiatric Appointment Comment: They will contact you if an earlier appt opens up Therapist Name of Therapist: Vidya - First episode psychosis program Therapist's Date of Therapist Appointment: 05/06/24 Time of Therapist Appointment: 11AM Therapy Appointment Comment: In person - [address] [facility] [place] [address] Development Representative Name of Development Representative: Denies Post Discharge Appointments Primary Care Physician Name Of Family Doctor/PCP: Karen Isaac
[2024-04-29 06:41] VITALS: TEMP 97.7
--- NOTE | 2024-04-29 10:12 | Discharge Summary ---
Date of Service April 29, 2024 History of Present Illness Sebastian presents for psychiatric admission for worsening anxiety, panic symptoms and psychosis in the context of a recent Crohn's disease flare requiring high-dose prednisone treatment, work-related stress, and feelings of being overwhelmed by responsibilities. On March 22, he experienced a panic attack at work, leading to an ER visit where he was diagnosed with panic anxiety disorder. He reports improvement in his Crohn's symptoms after taking prednisone, but has developed feelings of paranoia and uneasiness. Describes hearing sirens and wondered if people at work might have been talking about him. He fears being targeted or that his work performance might be negatively impacted. He describes feeling like he wasn't "pulling his weight" at work and experiencing confusion about work-related tasks. He is not currently in therapy but is actively seeking a therapist through his insurance. He expresses concern about discussing work- related matters in therapy due to confidentiality issues, as he works as a systems applications programming lead for [employer]. He endorses anxiety symptoms including excessive worry, paranoid thoughts, and panic attacks. He has been experiencing poor sleep for the past 2-3 days, with increased heart rate during the night. However, he reports improved sleep after starting Zyprexa last night. He was not prescribed any psychiatric medications prior to admission. Psychiatric ROS notable for no current nor history of symptoms of annette,PTSD, OCD nor eating disorder. Additional collateral information per ED CM note on 04/19/2024: "Pt is significantly delayed in responding to any questions. CM asked pt if he was hearing anything while he was pausing to answer, pt denies hearing anything following CM's voice. His eyes are looking around the room while he is silent. He also does not seem to know the answers to several questions asked or will answer incorrectly, prompting his mother to provide the correct response. Pt is unsure what he did this morning as far as getting himself ready for the day. He does not know if he brushed his teeth. Pt answered that his Crohn's disease has been fine, but mom corrects him stating that he has been having some issues with it. Pt states that he is not hearing any voices but does hear an ambulance siren that is not there. Pt's mother reports that today pt stated that someone is trying to kill him. Pt has no history of these symptoms. He was at [facility] recently following a panic attack and was discharged home to follow up outpatient. Pt has gotten significantly worse since then. Pt's mother reports he has not been eating, drinking, or sleeping well. He cannot remember things, make even basic decisions, and is unsure what he is doing most times. Pt denies SI/HI. He is unsure if he is having visual hallucinations. Denies drug use, but does consume alcohol occasionally." Physical Exam Mental Examination Appearance: Well Groomed Eye Contact: Maintains Eye Contact Motor Behavior: Unremarkable Speech: Normal Mood: Calm Affect: Calm and Flat Thought Process: Intact and Linear Hallucinations: None Insight: Fair Judgement: Fair Vital Signs (Past 24 Hours) Last Vital Signs Temp 36.5 C 04/29/24 06:39 Pulse 94 H 04/29/24 06:40 Resp 16 04/29/24 06:39 BP 118/80 04/29/24 06:40 Pulse Ox 97 04/25/24 06:43 O2 Del Method Room Air 04/25/24 06:43 Principal Diagnosis Brief Psychotic Disorder Psychiatric Data See daily stay summary. In short, safety was maintained and the patient was cooperative with care. Medication changes included starting Risperidone 2mg HS, Clonazepam 0.5mg HS, Sertraline 50mg HS and they tolerated this well. A family session was held and safety plan was completed prior to discharge. Initially presented with psychosis with paranoia and thought disorganization, anxiety, panic attacks, poor oral intake and poor self care. Recent prednisone taper for Chron's disease. No past h/o psychosis and distant family h/o Schizophrenia. Some stuttering at baseline. Symptoms resolved within a week of treatment. Continues to have a blunted affect. No clear h/o prodromal symptoms indicating Schizophrenia. Referred to [place] first episode psychosis program. Upon discharge presented a clear thought process, denied SI, HI, AVH, paranoia, felt safe in surroundings, presented good self care and grooming, was future oriented, and able to contract for safety. Day of Discharge Assessment Today the patient voices readiness for discharge. They note improvement in mood and deny thoughts to harm self or others. Thoughts remain organized and they are improved from admission. There is no evidence of psychosis. They agree to take mediations as prescribed and keep follow-up appointments. They are stable for discharge to outpatient level of care. Transition of Care Transition Of Care Record: was reviewed with the patient Advance Directives Advance Directives Information Provided: Yes Advance Directives: No Mental Health Advance Directive: No Advance Directives on File: No Living Will: Yes Power of Online Marketing Manager: Yes Advance Directives Reason:: Declines as Mental Health Visit. Suicide Risk Level Suicide Risk Level: Low (q15 min observation checks) Suicide Risk Level Comments: Risk Factors Assessment Male: Yes : Yes Do You Have Access To A Gun?: Yes (father has in the home) Health Problems: Yes Mental Health Diagnoses: Yes Substance Use Disorders: No Previous Attempt: No Family History of Suicide: No Previous Psychiatric Hospitalization: No Hopelessness: No Protective Factors Assessment Employed: Yes Stable Relationships: Yes Supportive Family: Yes Discharge Data Lab Results 04/19/24 04/19/24 04/19/24 09:25 09:27 Unknown WBC 10.31 RBC 5.53 Hgb 15.7 Hct 46.1 MCV 83.4 MCH 28.4 MCHC 34.1 RDW Std Deviation 38.6 RDW Coeff of Juhi 12.6 Plt Count 284 MPV 9.4 Immature Gran % (Auto) 0.2 Neut % (Auto) 73.8 Lymph % (Auto) 20.1 [place] % (Auto) 5.4 Eos % (Auto) 0.1 Baso % (Auto) 0.4 Neut # (Auto) 7.61 H Lymph # (Auto) 2.07 [place] # (Auto) 0.56 Eos # (Auto) 0.01 Baso # (Auto) 0.04 Immature Gran # (Auto) 0.02 Sodium 138 Potassium 3.7 Chloride 103 Carbon Dioxide 27 Anion Gap 8 BUN 9 Creatinine 0.91 Est Cr Clr Drug Dosing 120.8 eGFR 122.21 BUN/Creatinine Ratio 9.9 L Glucose 111 H Estimat Average Glucose Hemoglobin A1c Calcium 9.9 Total Bilirubin 0.7 AST 17 ALT 14 Alkaline Phosphatase 51 Total Protein 8.0 Albumin 5.0 Globulin 3.0 Albumin/Globulin Ratio 1.7 Triglycerides Cholesterol LDL Cholesterol, Calc VLDL Cholesterol, Calc HDL Cholesterol Cholesterol/HDL Ratio Vitamin B12 25-OH Vitamin D Total TSH 2.619 Urine Color Yellow Urine Appearance Clear Urine pH 7.0 Ur Specific [place] 1.010 Urine Protein Negative Urine Glucose (UA) Negative Urine Ketones Trace H Urine Blood Negative Urine Nitrite Negative Urine Bilirubin Negative Urine Urobilinogen Negative Ur Leukocyte Esterase Negative Salicylates < 3.0 L Urine Opiates Screen Neg Ur Methadone, Qual Neg Urine Fentanyl Screen Neg Acetaminophen < 3 L Urine Barbiturates Neg Ur Phencyclidine (PCP) Neg U Amphetamin/Meth Scrn Neg MDMA (Ecstasy) Screen Neg U Benzodiazepines Scrn Neg Ur Cocaine Metabolite Neg U Marijuana (THC) Screen Neg Ethyl Alcohol mg/dL < 10.0 SARS-CoV-2, RNA, NAAT NEGATIVE 04/21/24 06:57 WBC RBC Hgb Hct MCV MCH MCHC RDW Std Deviation RDW Coeff of Juhi Plt Count MPV Immature Gran % (Auto) Neut % (Auto) Lymph % (Auto) [place] % (Auto) Eos % (Auto) Baso % (Auto) Neut # (Auto) Lymph # (Auto) [place] # (Auto) Eos # (Auto) Baso # (Auto) Immature Gran # (Auto) Sodium Potassium Chloride Carbon Dioxide Anion Gap BUN Creatinine Est Cr Clr Drug Dosing eGFR BUN/Creatinine Ratio Glucose Estimat Average Glucose 105 Hemoglobin A1c 5.3 Calcium Total Bilirubin AST ALT Alkaline Phosphatase Total Protein Albumin Globulin Albumin/Globulin Ratio Triglycerides 55 Cholesterol 123 LDL Cholesterol, Calc 71 VLDL Cholesterol, Calc 11 HDL Cholesterol 41 Cholesterol/HDL Ratio 3.0 Vitamin B12 433 25-OH Vitamin D Total 32.2 TSH Urine Color Urine Appearance Urine pH Ur Specific [place] Urine Protein Urine Glucose (UA) Urine Ketones Urine Blood Urine Nitrite Urine Bilirubin Urine Urobilinogen Ur Leukocyte Esterase Salicylates Urine Opiates Screen Ur Methadone, Qual Urine Fentanyl Screen Acetaminophen Urine Barbiturates Ur Phencyclidine (PCP) U Amphetamin/Meth Scrn MDMA (Ecstasy) Screen U Benzodiazepines Scrn Ur Cocaine Metabolite U Marijuana (THC) Screen Ethyl Alcohol mg/dL SARS-CoV-2, RNA, NAAT Hospital Course (1) Brief psychotic disorder: (2) Anxiety: (3) Insomnia: (4) Hallucinations: (5) Crohn disease: Plan 04/28/2024: Discontinue a.m. risperidone. Continue risperidone 2 mg at bedtime. 04/27/2024: Continue medications and treatment plan. 04/26/2024: -Decrease risperidone to 1mg qAM and 2mg HS -May be able to come off MNPR tomorrow 04/25/2024: -Nasal saline given dry air -Increase risperidone to 1mgqAM and 3mg HS. 04/24/2024: -Consider further risperidone titration depending on HR tomorrow AM 04/23/2024: -Continue current medications and tx plan 04/22/2024: -Increase sertraline to 50mg daily -Start Klonopin 1mg HS po -Continue risperidone 1mg BID 04/21/2024: -Discontinue olanzapine -Start risperidone 1mg BID and 0.5mg BID prn for paranoia/psychosis 04/20/2024: The patient was admitted to the [facility] ([facility]) on q15 min checks (behavioral with suicide precautions) for safety. The patient will participate in group, recreational, and milieu therapies and will be offered additional individual and family sessions as clinically appropriate. -Start sertraline 25mg daily -Start olanzapine 5mg HS po and additional 2.5mg BID prn for paranoia/psychosis -Lorazepam 0.5mg BID prn for panic attacks/agitation -Labwork: * Fasting lipid panel * HbA1c * Vit D * Vit B12 Mental Health & Subst Abuse Tx Psychiatrist Name of Psychiatrist: Jenelle Dalton Psychiatrist's Date Of Appointment With Psychiatric Provider: 05/22/2024 Time of Appointment with Psychiatrist: 1:10PM Psychiatric Appointment Comment: They will contact you if an earlier appt opens up Therapist Name of Therapist: Vidya - First episode psychosis program Therapist's Date of Therapist Appointment: 05/06/24 Time of Therapist Appointment: 11AM Therapy Appointment Comment: In person - [address] [facility] [place] [address] Boiler Washer Name of Boiler Washer: Denies Post Discharge Appointments Primary Care Physician Name Of Family Doctor/PCP: Karen Isaac Discharge Plan Discharge Items Patient Disposition: Home - Self-Care Reason For Visit: UNSPECIFIED PSYCHOSIS Discharge Diagnosis: Brief psychotic disorder Anxiety Insomnia Condition on Discharge: Fair Activity: Resume your previous activity Non-emergency contact: Primary Care Provider and Psychiatrist Call non-emergency contact if: you have any medication questions and your symptoms worsen Follow-up/Referrals: Karen Lovelace [Primary Care Provider] - Diet: Regular Addtl Attending Provider Instructions: -Continue Risperidone 2mg at bedtime -Continue Clonazepam 0.5mg at bedtime -Continue Sertraline (Zoloft) 50mg at bedtime -Take Hydroxyzine 50mg NEEDED for insomnia. Can take half dose for anxiety. -Follow-up with outpatient psychiatrist. -Consider Cognitive Behavioral Therapy with outpatient therapist Pending Studies at Discharge: No Stand-Alone Forms: My [facility] [employer], Smoking Cessation Medications and DC Order Prescriptions: New clonazepam 0.5 mg tablet 0.5 mg PO HS Qty: 30 0RF hydroxyzine HCl 50 mg tablet 50 mg PO HSZ PRN (Reason: insomnia, anxiety) Qty: 60 0RF risperidone 2 mg Tablet 2 mg PO HS Qty: 30 0RF sertraline 50 mg Tablet 50 mg PO HS Qty: 30 0RF Continued infliximab [Remicade] 100 mg recon soln 100 mg IV .Q 6 wks multivitamin Tablet 1 tab PO DAILY Discharge Orders: Discharge Order (Routine); Ordered 04/29/24 Ordered By: Vel Moser/Other Patient Handouts: Treating Insomnia Admission Data Admit Date/Time: 04/19/24 13:26 Attending Provider: Vel Jordan Admit Provider: Vel Jordan Primary Care Provider: Karen Lovelace Other Interventions: PSY Interdisciplinary Discharge Planning Last Done: 04/26/24 10:41 C[place] [address] D/C day mgmt > 30 min Patient Type Established History Detailed Exam Detailed Medical Decision Making High Complexity Diagnoses Brief psychotic disorder F23 Anxiety F41.9 Insomnia G47.00 Hallucinations R44.3 Crohn disease K50.90
[2024-04-29 10:29] VITALS: BP 132/80; PULSE 106
== END 2024-04-29 11:03 | disposition home or self-care (01) | DRG 885 ==
LOC: ED 09:06 → 3S 13:26 → SUATTDRO 13:26 → 3S 13:33